=== PATIENT | female | born 1945 | race Caucasian/White ===

== ENCOUNTER → 2017-02-10 | Outpatient (CLI) | payer OTHER, BC ==
[~2017-02-10] MED LIST: ACT/35 PO; CALC500T83 PO; CHOL100010 PO; IBUP-103 PO; MAGN400T5 PO
== END | disposition home or self-care (01) ==
LOC: C.RDSM 13:48
PROVIDERS: ATTEND Orthopaedic Surgery Sports Medicine
DX: M25.561 Pain in right knee (principal)

== ENCOUNTER 2022-07-10 06:35 | Inpatient (IN) ==
--- NOTE | 2022-07-10 06:56 | Emergency Department Note ---
History of Present Illness General Chief complaint: Illness Stated complaint: Confusion, SOB, General Pain Time Seen by Provider: 07/10/22 06:54 History of Present Illness This 76-year-old female patient presents to the emergency department via EMS with her for evaluation of confusion, right sided chest discomfort, shortness of breath, back pain, weakness, and general pain. She states that she has been feeling sick at home with increasing back pain over the past 2 weeks. About 1.5 years ago she fractured her lower spine per patient. She then fell down a flight of stairs in [place], [place] about 4 months ago and fractured her right shoulder, right clavicle, and right hip along with a pelvic fracture per her . She was admitted to the hospital in [facility] and then was sent to a rehab facility. They just recently returned home to [place]. She has been diagnosed with early stages of dementia, but has not seen a local doctor since coming back to [place] because she has refused per her . Continues to complain of lower back pain and pain into her legs since that time. Has not been able to walk well since the fall and she is not able to get around a lot and her has to carry her and move her in bed. Her states that she has been almost completely immobile for the past 2 weeks. Has also had increased swelling in her bilateral legs for the past 4 weeks. She saw cardiology and per patient they did not think the leg swelling was a heart problem. Has also had redness and hardness to the right breast for an unknown amount of time per patient, but the patient's did not know about this. The patient states that she had imaging of her breast 1 year ago that did not reveal any concerning causes, but unknown if this is correct. She is on Eliquis for Afib. She has been waking up every 2 hrs needing to drink water and get andrez sukhwinder in a new position per her . The patient's is her full-time caregiver, and he does not feel like he can take care of her at home at this time. The patient's is Mohit - [phone] and would like to be contacted about all results prior to speaking with his . Home Medications Medication Instructions Recorded Confirmed Type calcium 1 tab PO DAILY 04/05/19 07/10/22 History carbonate,citrate-magnesium oxide 200 mg calcium-50 mg tablet cholecalciferol (vitamin D3) 50 2,000 units PO BID 04/05/19 07/10/22 History mcg (2,000 unit) tablet (Vitamin D3) magnesium citrate 100 mg tablet 500 mg PO DAILY 04/05/19 07/10/22 History multivitamin 1 tab PO DAILY 04/05/19 07/10/22 History polyethylene glycol 3350 17 gram 17 gm PO DAILY 04/05/19 07/10/22 History oral powder packet (Miralax) risedronate 35 mg tablet 35 mg PO WK 04/05/19 07/10/22 History vitamin B complex (B 2 tab PO DAILY 04/05/19 07/10/22 History Complex-Vitamin B12 tablet) apixaban 5 mg tablet (Eliquis) 5 mg PO BID 07/10/22 07/10/22 History sennosides 8.6 mg tablet (senna) 8.6 mg PO HS 07/10/22 07/10/22 History Allergies Allergy/AdvReac Type Severity Reaction Status Date / Time No Known Allergies Allergy Mild Verified 04/05/19 14:05 Past Med/Surg History Medical History Arthritis Diverticulitis Left humeral fracture Lumbar compression fracture L1 Osteoporosis Scoliosis Surgical History History of tonsillectomy Social History Smoking Status: Never smoker Hx Alcohol Use: No Hx Substance Use: No Preferred Language: Latvian Communication Ability: Effective Visual Impairment: Limited Hearing Ability: Use of Hearing Aid Beliefs That Will Affect Care: None marital status: Current Living Situation: Spouse current occupational status: retired Feels Safe at Home: Yes Review of Systems See HPI for pertinent positives & negatives. Physical Exam Vital Signs Vital Signs - 24 hr 07/10/22 06:42 07/10/22 06:47 07/10/22 07:13 Temperature 36.8 C Temperature Source Oral Pulse Rate 107 H 101 H Pulse Rate [Right Finger] Pulse Rhythm Regular Pulse Rhythm [Right Finger] Pulse Strength Normal Pulse Strength [Right Finger] Respiratory Rate 17 Respiratory Effort / Characteristics Non-Labored Spontaneous Respiratory Depth Normal Respiratory Pattern Regular Blood Pressure 130/78 Blood Pressure [Right Arm] Blood Pressure Mean 95 Blood Pressure Mean [Right Arm] Blood Pressure Position Sitting Blood Pressure Position [Right Arm] Pulse Oximetry 96 Oxygen Delivery Method Room Air Room Air Oxygen Flow Rate Sepsis Recent Fever Within 48 Hours No Sepsis New/Unexplained Change in Mental Status N/A Sepsis Action Taken by Nursing No Action Required 07/10/22 09:00 07/10/22 11:00 07/10/22 13:00 Temperature Temperature Source Pulse Rate Pulse Rate [Right Finger] 93 H 95 H 93 H Pulse Rhythm Pulse Rhythm [Right Finger] Regular Irregular Regular Pulse Strength Pulse Strength [Right Finger] Normal Normal Normal Respiratory Rate 18 18 18 Respiratory Effort / Characteristics Non-Labored Non-Labored Non-Labored Respiratory Depth Normal Normal Normal Respiratory Pattern Regular Regular Regular Blood Pressure Blood Pressure [Right Arm] 131/77 103/81 112/75 Blood Pressure Mean Blood Pressure Mean [Right Arm] 95 88 87 Blood Pressure Position Blood Pressure Position [Right Arm] Lying Lying Lying Pulse Oximetry 98 94 95 Oxygen Delivery Method Nasal Cannula Room Air Room Air Oxygen Flow Rate 2 Sepsis Recent Fever Within 48 Hours Sepsis New/Unexplained Change in Mental Status Sepsis Action Taken by Nursing 07/10/22 14:28 07/10/22 15:00 Temperature Temperature Source Pulse Rate 102 H Pulse Rate [Right Finger] 97 H Pulse Rhythm Pulse Rhythm [Right Finger] Pulse Strength Pulse Strength [Right Finger] Respiratory Rate 15 Respiratory Effort / Characteristics Non-Labored Spontaneous Respiratory Depth Normal Respiratory Pattern Blood Pressure Blood Pressure [Right Arm] 117/41 L Blood Pressure Mean Blood Pressure Mean [Right Arm] 66 Blood Pressure Position Blood Pressure Position [Right Arm] Pulse Oximetry 96 Oxygen Delivery Method Oxygen Flow Rate Sepsis Recent Fever Within 48 Hours Sepsis New/Unexplained Change in Mental Status Sepsis Action Taken by Nursing VITALS: Vitals are noted on the nurse's note and reviewed by myself. GENERAL: The patient is frail and chronically ill-appearing. Non toxic, no acute distress, non-diaphoretic. SKIN: Capillary refill <2 sec. EYES: PERRLA. EOMI. Conjunctivae without injection, sclerae without icterus. NOSE: Patent without discharge. MOUTH: Mucous membranes slightly dry. Uvula midline. Airway patent. NECK: Supple without nuchal rigidity. No cervical spine or paraspinal muscle tenderness. HEART: Regular rate and rhythm without murmurs gallops or rubs. LUNGS: Clear to auscultation bilaterally without wheezes, rales or rhonchi. No retractions or accessory muscle use. BREAST: The right breast is hard and indurated with erythema and abnormal appearance of the external skin. Minimally tender to palpation. No area of fluctuance noted. No discharge noted. The left breast is normal without masses, erythema, or induration. ABDOMEN: Positive bowel sounds x 4. Normal tympanic percussion. Soft, diffusely tender to palpation, without masses or organomegaly. Siddiqui sign n egative. No guarding or rebound tenderness. No focal RLQ or LLQ tenderness. MUSCULOSKELETAL: No tenderness to palpation of the thoracic spine or paraspinal muscles. The patient is tender to palpation diffusely over the lumbar spine and bilateral paraspinal muscles. The patient's bilateral lower extremities are edematous with 1+ pitting edema. No erythema, warmth, or cording noted. The patient is able to move her bilateral lower extremities slightly, but has decreased range of motion and decreased strength bilaterally. Peripheral pulses 2+. NEURO: Patient was alert and oriented to person and place, but not to time. She is sometimes able to answer questions, but then other times seems confused. Normal sensation to the bilateral upper and lower extremities. Course Administered Medications Discontinued Medications Fentanyl Citrate (Fentanyl Citrate Pf 100 Mcg/2 Ml Vial) 50 mcg IV NOW STA Stop: 07/10/22 08:07 Last Admin: 07/10/22 08:14 Dose: 50 mcg Documented By: JV Sodium Chloride (Nss) 500 mls @ 999 mls/hr IV .Q31M STA Stop: 07/10/22 07:43 Last Infusion: 07/10/22 09:06 Dose: 0 mls/hr Documented By: Admin: 07/10/22 08:15 Dose: 999 mls/hr Documented By: JV Cefepime HCl (Maxipime) 2,000 mg in 20 mls @ 5 mls/min IV NOW STA; Protocol Stop: 07/10/22 10:55 Last Admin: 07/10/22 11:37 Dose: 5 mls/min Documented By: JV Ioversol (Optiray 350 100ml) 94 ml IV ONCE ONE Stop: 07/10/22 10:01 Last Admin: 07/10/22 10:00 Dose: 94 ml Documented By: ZAID Ondansetron HCl (Ondansetron Inj 2 Mg/Ml 2 Ml Vial) 4 mg IV NOW STA Stop: 07/10/22 08:07 Last Admin: 07/10/22 08:14 Dose: 4 mg Documented By: JV Medical Decision Making Differential Diagnosis Differential diagnosis includes dementia, acute intracranial hemorrhage, infection, sepsis, breast cancer, breast mass, breast infection/abscess, malignancy, metastases, pneumonia, PE, IL, CHF, DVT, aortic dissection, diverticulitis, abdominal abscess, hepatitis, cholecystitis, cholelithiasis, UTI, pyelonephritis, constipation, bowel obstruction, COVID, RSV, influenza, fracture, subluxation, epidural abscess, cauda equina syndrome, or others. Laboratory Data Attestation: I reviewed the patient's lab results. 07/10/22 08:09 07/10/22 08:09 Lab Results 07/10/22 07/10/22 07/10/22 Range/Units 08:09 08:09 08:09 WBC 8.34 (4.8-10.8) K/ul RBC 4.51 (4.20-5.40) M/uL Hgb 13.3 (12.0-16.0) g/dl Hct 38.0 (37.0-47.0) % MCV 84.3 (80.0-100.0) fL MCH 29.5 (25.0-34.0) pg MCHC 35.0 (32.0-36.0) g/dL RDW Std Deviation 45.3 (36.4-46.3) fL RDW Coeff of Talha 14.8 H (11.5-14.5) % Plt Count 386 (130-400) K/uL MPV 10.3 (9.4-12.4) fL Immature Gran % (Auto) 0.2 % Neut % (Auto) 82.9 % Lymph % (Auto) 7.7 % Weakley % (Auto) 9.1 % Eos % (Auto) 0.0 % Baso % (Auto) 0.1 % Neut # (Auto) 6.91 H (1.40-6.50) K/uL Lymph # (Auto) 0.64 L (1.2-3.4) K/uL Weakley # (Auto) 0.76 H (0.11-0.59) K/uL Eos # (Auto) 0.00 (0-0.50) K/uL Baso # (Auto) 0.01 (0-0.2) K/uL Immature Gran # (Auto) 0.02 (0.01-0.20) K/uL PT 11.3 (9.0-12.0) Seconds INR 1.0 (0.9-1.1) APTT 25.9 (21.0-31.0) Seconds PTT Ratio 0.9 Sodium 124 L (136-145) mmol/L Potassium 4.8 (3.5-5.1) mmol/L Chloride 95 L (98-107) mmol/L Carbon Dioxide 19 L (21-32) mmol/L Anion Gap 10 (3-11) BUN 42 H (6-23) mg/dl Creatinine 1.19 (0.6-1.2) mg/dl Est Cr Clr Drug Dosing 32.8 ml/min Est GFR ( Amer) 52.1 ml/min Est GFR (Non-Af Amer) 44.9 ml/min BUN/Creatinine Ratio 35.3 H (10-20) Glucose 114 H (70-99(Fasting)) mg/dl Lactate (0.4-2.0) mmol/L Calcium 9.3 (8.6-10.3) mg/dl Magnesium 2.3 (1.7-2.4) mg/dl Total Bilirubin 1.0 (0.2-1.0) mg/dl AST 14 (13-39) U/L ALT 11 (7-52) U/L Alkaline Phosphatase 57 (34-104) U/L Troponin I High Sens 13.6 (0-14) pg/ml B-Natriuretic Peptide (0-100) pg/ml Total Protein 5.4 L (6.0-8.3) gm/dl Albumin 3.0 L (3.4-5.0) gm/dl Globulin 2.4 L (2.5-4.0) gm/dl Albumin/Globulin Ratio 1.3 (0.9-2) Lipase < 3 L (11-82) U/L TSH (0.300-4.500) uIu/ml Urine Color Urine Appearance (Clear) Urine pH (4.5-7.5) Ur Specific [place] (1.000-1.030) Urine Protein (Negative) Urine Glucose (UA) (Negative) Urine Ketones (Negative) Urine Blood (Negative) Urine Nitrite (Negative) Urine Bilirubin (Negative) Urine Urobilinogen (Negative) Ur Leukocyte Esterase (Negative) Urine WBC (Auto) (0-5) /hpf Urine RBC (Auto) (0-4) /hpf U Hyaline Cast (Auto) (0-5) /lpf U Epithel Cells (Auto) (0-5) /lpf Urine Bacteria (Auto) (Negative) SARS-CoV-2 (PCR) (Negative) Influenza Type A (PCR) (Neg) Influenza Type B (PCR) (Neg) RSV (RT-PCR) (Neg) 07/10/22 07/10/22 07/10/22 Range/Units 08:09 08:09 08:17 WBC (4.8-10.8) K/ul RBC (4.20-5.40) M/uL Hgb (12.0-16.0) g/dl Hct (37.0-47.0) % MCV (80.0-100.0) fL MCH (25.0-34.0) pg MCHC (32.0-36.0) g/dL RDW Std Deviation (36.4-46.3) fL RDW Coeff of Talha (11.5-14.5) % Plt Count (130-400) K/uL MPV (9.4-12.4) fL Immature Gran % (Auto) % Neut % (Auto) % Lymph % (Auto) % Weakley % (Auto) % Eos % (Auto) % Baso % (Auto) % Neut # (Auto) (1.40-6.50) K/uL Lymph # (Auto) (1.2-3.4) K/uL Weakley # (Auto) (0.11-0.59) K/uL Eos # (Auto) (0-0.50) K/uL Baso # (Auto) (0-0.2) K/uL Immature Gran # (Auto) (0.01-0.20) K/uL PT (9.0-12.0) Seconds INR (0.9-1.1) APTT (21.0-31.0) Seconds PTT Ratio Sodium (136-145) mmol/L Potassium (3.5-5.1) mmol/L Chloride (98-107) mmol/L Carbon Dioxide (21-32) mmol/L Anion Gap (3-11) BUN (6-23) mg/dl Creatinine (0.6-1.2) mg/dl Est Cr Clr Drug Dosing ml/min Est GFR ( Amer) ml/min Est GFR (Non-Af Amer) ml/min BUN/Creatinine Ratio (10-20) Glucose (70-99(Fasting)) mg/dl Lactate 1.0 (0.4-2.0) mmol/L Calcium (8.6-10.3) mg/dl Magnesium (1.7-2.4) mg/dl Total Bilirubin (0.2-1.0) mg/dl AST (13-39) U/L ALT (7-52) U/L Alkaline Phosphatase (34-104) U/L Troponin I High Sens (0-14) pg/ml B-Natriuretic Peptide 70 (0-100) pg/ml Total Protein (6.0-8.3) gm/dl Albumin (3.4-5.0) gm/dl Globulin (2.5-4.0) gm/dl Albumin/Globulin Ratio (0.9-2) Lipase (11-82) U/L TSH 1.586 (0.300-4.500) uIu/ml Urine Color Urine Appearance (Clear) Urine pH (4.5-7.5) Ur Specific [place] (1.000-1.030) Urine Protein (Negative) Urine Glucose (UA) (Negative) Urine Ketones (Negative) Urine Blood (Negative) Urine Nitrite (Negative) Urine Bilirubin (Negative) Urine Urobilinogen (Negative) Ur Leukocyte Esterase (Negative) Urine WBC (Auto) (0-5) /hpf Urine RBC (Auto) (0-4) /hpf U Hyaline Cast (Auto) (0-5) /lpf U Epithel Cells (Auto) (0-5) /lpf Urine Bacteria (Auto) (Negative) SARS-CoV-2 (PCR) (Negative) Influenza Type A (PCR) (Neg) Influenza Type B (PCR) (Neg) RSV (RT-PCR) (Neg) 07/10/22 07/10/22 Range/Units 09:02 Unknown WBC (4.8-10.8) K/ul RBC (4.20-5.40) M/uL Hgb (12.0-16.0) g/dl Hct (37.0-47.0) % MCV (80.0-100.0) fL MCH (25.0-34.0) pg MCHC (32.0-36.0) g/dL RDW Std Deviation (36.4-46.3) fL RDW Coeff of Talha (11.5-14.5) % Plt Count (130-400) K/uL MPV (9.4-12.4) fL Immature Gran % (Auto) % Neut % (Auto) % Lymph % (Auto) % Weakley % (Auto) % Eos % (Auto) % Baso % (Auto) % Neut # (Auto) (1.40-6.50) K/uL Lymph # (Auto) (1.2-3.4) K/uL Weakley # (Auto) (0.11-0.59) K/uL Eos # (Auto) (0-0.50) K/uL Baso # (Auto) (0-0.2) K/uL Immature Gran # (Auto) (0.01-0.20) K/uL PT (9.0-12.0) Seconds INR (0.9-1.1) APTT (21.0-31.0) Seconds PTT Ratio Sodium (136-145) mmol/L Potassium (3.5-5.1) mmol/L Chloride (98-107) mmol/L Carbon Dioxide (21-32) mmol/L Anion Gap (3-11) BUN (6-23) mg/dl Creatinine (0.6-1.2) mg/dl Est Cr Clr Drug Dosing ml/min Est GFR ( Amer) ml/min Est GFR (Non-Af Amer) ml/min BUN/Creatinine Ratio (10-20) Glucose (70-99(Fasting)) mg/dl Lactate (0.4-2.0) mmol/L Calcium (8.6-10.3) mg/dl Magnesium (1.7-2.4) mg/dl Total Bilirubin (0.2-1.0) mg/dl AST (13-39) U/L ALT (7-52) U/L Alkaline Phosphatase (34-104) U/L Troponin I High Sens (0-14) pg/ml B-Natriuretic Peptide (0-100) pg/ml Total Protein (6.0-8.3) gm/dl Albumin (3.4-5.0) gm/dl Globulin (2.5-4.0) gm/dl Albumin/Globulin Ratio (0.9-2) Lipase (11-82) U/L TSH (0.300-4.500) uIu/ml Urine Color Dark Yellow Urine Appearance Clear (Clear) Urine pH 5.0 (4.5-7.5) Ur Specific [place] 1.028 (1.000-1.030) Urine Protein 1+ H (Negative) Urine Glucose (UA) Negative (Negative) Urine Ketones Negative (Negative) Urine Blood 1+ H (Negative) Urine Nitrite Positive A (Negative) Urine Bilirubin 2+ H (Negative) Urine Urobilinogen Negative (Negative) Ur Leukocyte Esterase 1+ H (Negative) Urine WBC (Auto) 1-5 (0-5) /hpf Urine RBC (Auto) 0-4 (0-4) /hpf U Hyaline Cast (Auto) 1-5 (0-5) /lpf U Epithel Cells (Auto) 5-10 H (0-5) /lpf Urine Bacteria (Auto) Negative (Negative) SARS-CoV-2 (PCR) POSITIVE A* (Negative) Influenza Type A (PCR) Negative (Neg) Influenza Type B (PCR) Negative (Neg) RSV (RT-PCR) Negative (Neg) Imaging Data Radiologist's Impression: Abdomen/Pelvis CT 07/10/22 07:[address] WITH IV CONTRAST HISTORY: Acute chest and abdominal pain abdominal pain TECHNIQUE: Multiaxial CT images of the abdomen and pelvis were performed following the IV administration of 94 cc of Optiray, A dose lowering technique was utilized adhering to the principles of ALARA. COMPARISON STUDY: Chest CT and CT lumbar spine studies of same day, lumbar spine CT 03/06/2019 FINDINGS: Partially imaged heterogeneous enhancement throughout the majority of the right breast measures up to 8.2 x 3.0 cm with associated skin thickening and enhancement. Additional enhancement adjacent right chest wall. Anasarca. Moderate left and large right pleural effusions. Right basilar consolidation/volume loss. Additional nodular thickening of the pericardium and right hemidiaphragmatic pleural reflections. Unremarkable spleen. Moderately atrophic pancreas. Distended gallbladder. Unremarkable liver. There is narrowing of the portal splenic confluence. Masslike thickening of the adrenal glands measure up to 1.6 cm on the right. Nodular thickening within the right greater left perirenal spaces. 1.2 cm cyst of the superior pole right kidney. Decompressed urinary bladder with mild wall thickening. Aorta and IVC are unremarkable. With moderate wall thickening of the distal stomach. There are several fluid- filled borderline dilated loops of small bowel measuring up to approximately 2.8 cm. Moderate fecal retention of the rectum with circumferential rectal wall thickening on image 254. Heterogeneous enhancing 3.5 x 3.5 cm uterine mass adjacent 7 mm nodule on image 255. Masslike thickening of the cecum/ileocecal valve with increased enhancement adjacent meniscal lymph nodes measuring up to 1.3 x 0.8 cm. Additional wall thickening is noted within portions transverse and ascending colon. Demineralized appearance of the bones. Severe superior endplate compression deformity at L1 has progressively worsened from the 2019 comparison. Bilateral sacral insufficiency fractures. Healing subacute appearing nondisplaced anterolateral rib fractures. Healing subacute mildly displaced frac tures of the right superior and inferior pubic rami. Subacute nondisplaced intertrochanteric fracture of the right femur with heterogeneous sclerosis. IMPRESSION: 1. Large malignant right breast mass with chest wall and cutaneous extension. 2. Moderate left with large right pleural effusions. 3. Pleural, pericardial, peritoneal/omental and adrenal metastasis. 4. Heterogeneously enhancing 3.5 cm uterine mass. 5. Irregular wall thickening within the cecum, ascending, transverse colon and rectum may be secondary to serosal implants however should be correlated with colonoscopy to exclude colonic neoplasm. 6. Borderline dilation involving several loops of small bowel may represent partial obstruction. 7. Healing subacute nondisplaced intertrochanteric fracture of the right femur. Associated sclerosis may be secondary to bony healing however an underlying lesion with pathologic fracture could appear similarly. 8. Healing subacute right pelvic ring fractures with mild displacement. 9. Marked narrowing of the portal splenic confluence. 10. Additional findings as above. ACT 112: Negative or not required by law. The above report was generated using voice recognition software. It may contain grammatical, syntax or spelling errors. Electronically signed by: Isidro Osborne M.D. 07/10/2022 11:[address] 07/10/22 07:13 CT head/brain wo con CLINICAL HISTORY: 76 years-old Female with change in mental status. Acutely altered mental status TECHNIQUE: Multiple axial CT images of the head were obtained without contrast. A dose lowering technique was utilized adhering to the principles of ALARA. COMPARISON: Brain MRI 10/10/2014. FINDINGS: No acute intracranial hemorrhage, midline shift, intracranial mass, hydrocephalus, territorial ischemia or abnormal extra-axial collection. Involutional changes with chronic microvascular ischemic disease. The calvarium is intact. Calcification noted within the left posterior fossa on image 9 series 2. The paranasal sinuses, mastoid air cells, and middle ear cavities are clear. Cardiomegaly. Right pleural effusion noted on the oral pathologist localizer images. IMPRESSION: No acute intracranial abnormality identified. ACT 112: Negative or not required by law. The above report was generated using voice recognition software. It may contain grammatical, syntax or spelling errors. Electronically signed by: Isidro Osborne M.D. 07/10/2022 10:[address] 07/10/22 07:[address] DOSE: 1065.30 mGy.cm HISTORY: low back pain TECHNIQUE: Multiaxial CT images of the lumbar spine were performed and reformatted in the sagittal and coronal plane following the use of intravenous contrast. A dose lowering technique was utilized adhering to the principles of ALARA. COMPARISON: Lumbar spine CT 03/06/2019. FINDINGS: There is a moderate to severe compression deformity at L1 which has progressed in the interval. This demonstrates up to 75% loss of height anteriorly. There is 3 mm of retropulsion of the posterior superior corner resulting in mild central canal narrowing at this level. This favors a chronic fracture. No significant paravertebral edema. No additional fractures within the lumbar spine. Moderate facet degenerative changes throughout the lumbar spine. There is a fracture involving the right sacral wing which also appears subacute. This may represent an insufficiency fracture. This likely involves the S3 vertebral body. Subtle sclerosis within the left sacral wing may represent an additional insufficiency fracture. Bilateral pleural effusions are better appreciated on the same day chest CT. Presacral edema and body wall edema is also noted. IMPRESSION: 1. A moderate to severe superior endplate compression fracture at L1 which is likely chronic. 2. No definite acute fractures within the lumbar spine. 3. Sacral fractures as described above which favor insufficiency fractures. 4. Bilateral pleural effusions. ACT 112: Negative or not required by law. Electronically signed by: Sony Hunter M.D. 07/10/2022 10:[address] 07/10/22 07:[address] CONTRAST CT DOSE: HISTORY: Atypical chest pain TECHNIQUE: Multiaxial CT images of the chest were performed following the intravenous administration of contrast. A dose lowering technique was utilized adhering to the principles of ALARA. COMPARISON: None. FINDINGS: Thoracic spine levoscoliosis. A moderate to severe chronic compression deformities again noted at L1. Old, healed right anterior rib fractures. Old, healed right clavicle and bilateral humeral neck fractures. No acute fractures identified within the chest. No suspicious lytic or blastic osseous lesions. There is diffuse body wall edema. The thyroid gland enhances normally. Abnormal skin thickening and enhancement within the right breast. There is also near diffuse masslike enhancement within the right breast which appears to involve the right pectoralis muscles. Therefore, this is highly suspicious for a breast malignancy. There is also ill-defined enhancing soft tissue surrounding the right axillary vessels which may represent metastatic disease. Limited views of the upper abdomen demonstrate a normal liver and spleen. Nodular thickening within the bilateral adrenal glands is noted. There is a small amount of ascites. The gallbladder is distended. Normal caliber esophagus. The heart is mildly enlarged. There is a large right and moderate left pleural effusion. There is complete atelectasis of the right middle and lower lobes as well as partial atelectasis of the right upper lobe posteriorly. This is likely due to compression from the large right pleural effusion. Subtle ill-defined soft tissue surrounding the main portal vein which is moderately narrowed. This is best seen on image 247. No definite hilar lymphadenopathy. A prominent ill- defined upper right paratracheal lymph node on image 77 which measures 1.5 cm. No evidence for an aortic dissection. The main pulmonary arteries are patent. No pneumothorax. The central airways are patent. Patchy densities within the left lower lobe favor atelectasis. There are also patchy airspace opacities within the right upper lobe. These are nonspecific could be due to atelectasis or a developing pneumonia. Irregular soft tissue enhancement within the anterior diaphragmatic space and along the base of the right pleura suggesting metastatic disease. There is also abnormal thickening on the right diaphragmatic savanah. Mild anterior pleural thickening and enhancement which is also concerning for metastatic disease. Mild soft tissue enhancement within the retrosternal space concerning for metastatic disease. IMPRESSION: 1. Abnormal skin thickening and enhancement within the right breast. There is also near diffuse masslike enhancement within the right breast which appears to involve the right pectoralis muscles. Therefore, this is highly suspicious for a breast malignancy. 2. Ill-defined enhancing soft tissue surrounding the right axillary vessels and within the upper right paratracheal location concerning for metastatic disease. 3. Large right and moderate left pleural effusions, likely malignant. 4. Patchy airspace opacities within the right upper lobe which could represent atelectasis or a developing pneumonia. 5. Nodular thickening of the bilateral adrenal glands. 6. Subtle ill-defined soft tissue surrounding the main portal vein which is moderately narrowed. This is nonspecific but could represent metastatic disease. 7. Small amount of ascites. 8. Additional sites of metastatic disease as described above. ACT 112: Negative or not required by law. Electronically signed by: Sony Hunter M.D. 07/10/2022 10:51 AM Venous Doppler Study 07/10/22 07:16 BILATERAL LOWER EXTREMITY VENOUS DOPPLER HISTORY: leg pain/edema COMPARISON STUDY: None. FINDINGS: There is normal compressibility, flow, and augmentation within the bilateral lower extremity deep venous systems. A 37 x 19 x 11 mm left popliteal cyst. IMPRESSION: No DVT within the right or left lower extremity. ACT 112: Negative or not required by law. Electronically signed by: Sony Hunter M.D. 07/10/2022 10:10 AM [facility] Narrative I examined the patient. Additional history was obtained from the patient's and EMS due to the patient's change in mental status. The patient presents complaining of change in her mental status/confusion, right breast abnormality, shortness of breath, chest discomfort, abdominal pain, swelling in her bilateral lower extremities, and decreased mobility. Symptoms have been getting progressively worse since she was diagnosed with multiple fractures 4 months ago in [facility] as above. The patient's did not know about the breast lesion. The patient's no longer feels like he can care for her at home. The patient has not been seen locally yet for the symptoms. An IV lock was placed and labs were drawn. She was given 500 mL normal saline solution bolus. She was given fentanyl 50 mcg IV and Zofran 4 mg IV for pain. Continuous food quality technician: Order was placed for continuous food quality technician. Patient was placed on the food quality technician and continuous pulse ox. Patient was noted to be in atrial fibrillation at an initial rate of 104 bpm per my interpretation. EKG was interpreted by myself and Dr. Sanz and shows atrial fibrillation with rapid ventricular response at 112 bpm. The quality of the EKG is poor, but there is possible T wave abnormalities. No acute ST or T wave changes. CBC without anemia or leukocytosis and platelets were normal. Coags are normal. Sodium low at 124, chloride 95, carbon dioxide 19, total protein 5.4, albumin 3, globulin 2.4. BUN elevated 42, but creatinine normal at 1.19. Glucose 114. LFTs were normal. Lipase was normal. TSH was normal. Magnesium normal. BNP normal. Troponin was normal. Urinalysis with possible UTI with culture pending. RSV and influenza were negative. COVID was positive. Blood cultures are pending. Venous ultrasound of the bilateral lower extremities were negative for DVT. CT scans were reviewed by myself and read by radiology as above. CT scan of the head without acute intracranial abnormality. CT scan of the lumbar spine shows a moderate to severe superior endplate compression fracture at L1 which is likely chronic. No definite acute fractures within the lumbar spine. Sacral fractures which favor insufficiency fractures. Bilateral pleural effusions. CT scan of the chest shows abnormal skin thickening and enhancement within the right breast as well as a near diffuse masslike enhancement within the right breast which appears to involve the right pectoralis muscles. Therefore, this is highly suspicious for breast malignancy. There is ill-defined enhancing soft tissue surrounding the right axillary vessels and within the upper right paratracheal location concerning for metastatic disease. Large right and moderate left pleural effusions which are likely malignant. Patchy airspace opacities within the right upper lobe which could represent atelectasis or developing pneumonia. Nodular thickening of the bilateral adrenal glands. Subtle ill-defined soft tissue surrounding the main portal vein which is moderately narrowed. This is nonspecific, but could represent metastatic disease. Small amount of ascites. Additional sites of metastatic disease as above. CT scan of the abdomen and pelvis shows the large malignant right breast mass with chest wall and cutaneous extension. Moderate left with large right pleural effusions. Pleural, pericardial, peritoneal, omental, and adrenal metastases. Heterogeneously enhancing 3.5 cm uterine mass. Irregular wall thickening within the cecum, ascending, transverse colon, and rectum which may be secondary to serosal implants, however, may include colonic neoplasm. Borderline dilation involving several loops of the small bowel which may represent partial obstruction. Healing subacute nondisplaced intertrochanteric fracture of the right femur. Associated sclerosis may be secondary to bony healing, but no underlying lesion with pathologic fracture could appear similarly. Healing subacute right pelvic ring fractures with mild displacement. Marked narrowing of the portal splenic confluence. The patient has multiple abnormalities on her work-up including positive COVID, UTI, pleural effusion, right breast mass that is likely malignant with multiple metastases, hyponatremia, multiple healing fractures, change in mental status, and generalized weakness. The patient was given cefepime and IV in the emergency department. Will await results of the blood and urine cultures. I had a meaningful discussion about this patient with Dr. Sanz who agrees with my assessment and the treatment plan. I spoke with the patient's multiple different times during the emergency department stay regarding the f indings of the imaging along with blood work. I did contact pastoral services who presented to speak with the patient as well given the new diagnosis of likely breast cancer cancer with metastases. I then also spoke with the patient's again with pastoral services present. I spoke with the on-call hospitalist who agreed to admit the patient for further evaluation and treatment. Please refer to their dictation for further details. The patient's did discuss with me in a sub-waiting room along with pastoral staff that he did not want the to know about the cancer related f indings and that no information should be given to the patient regarding these findings prior to speaking with him first. As we were returning to the room after our discussion, it was noted that the hospitalist was in the room examining the patient and the patient's discussed these requests with the hospitalist. The patient's , Mohit, can be reached at [phone]. The patient's care was transferred in stable condition. Impression & Plan Breast mass, right, Lumbar compression fracture, Hyponatremia, Pleural eff usion, Generalized weakness, COVID-19, UTI (urinary tract infection), Osteoporosis Discharge Plan Visit Data Chief Complaint: Illness Stated Complaint: Confusion, SOB, General Pain ED Provider: Mac Sanz ED Midlevel Provider: Tali Lora Discharge Problem: Breast mass, right, Lumbar compression fracture, Hyponatremia, Pleural effusion, Generalized weakness, COVID-19, UTI (urinary tract infection), Osteoporosis Patient Disposition: Admitted As Inpatient Condition: Good Forms Stand Alone Forms: My [facility] Prescriptions Prescriptions: No Action calcium carb and citrat-mag ox 200 mg calcium- 50 mg tablet 1 tab PO DAILY multivitamin Tablet 1 tab PO DAILY vitamin B complex [B Complex-Vitamin B12] Tablet 2 tab PO DAILY polyethylene glycol 3350 [Miralax] 17 gram powder in packet 17 gm PO DAILY magnesium citrate 100 mg tablet 500 mg PO DAILY cholecalciferol (vitamin D3) [Vitamin D3] 2,000 unit tablet 2,000 units PO BID risedronate 35 mg tablet 35 mg PO WK sennosides [senna] 8.6 mg tablet 8.6 mg PO HS Eliquis 5 mg tablet 5 mg PO BID Referrals Referrals: Alejandra Venegas MD [Primary Care Provider] -
[2022-07-10] MEDS ORDERED: SODIUM CHLORIDE 0.9% 500 ML IV STA (07:13)
[2022-07-10] MEDS ORDERED: fentaNYL citrate PF 100 MCG/2 ML VIAL IV STA (08:06)
[2022-07-10] MEDS ORDERED: ONDANSETRON INJ 2 MG/ML 2 ML VIAL IV STA (08:06)
[2022-07-10 08:17] LABS: Influenza A virus by PCR Negative (Neg); Influenza B virus by PCR Negative (Neg); RSV by PCR Negative (Neg)
[2022-07-10 08:24] LABS: SARS CoV2 RNA(COVID-19) Ceph POSITIVE (Negative)
[2022-07-10 08:49] LABS: Basophils # (auto) 0.01 K/uL (0-0.2); Basophils % (auto) 0.1 %; Hemoglobin 13.3 g/dl (12.0-16.0); Immature Granulocytes # (auto) 0.02 K/uL (0.01-0.20); Immature Granulocytes % (auto) 0.2 %; Lymphocytes # (auto) 0.64 K/uL (1.2-3.4); Lymphocytes % (auto) 7.7 %; Mean Corpuscular Hemoglobin 29.5 pg (25.0-34.0); Mean Corpuscular Volume 84.3 fL (80.0-100.0); Mean Platelet Volume 10.3 fL (9.4-12.4); Monocytes # (auto) 0.76 K/uL (0.11-0.59); Monocytes % (auto) 9.1 %; Neutrophils # (auto) 6.91 K/uL (1.40-6.50); Neutrophils % (auto) 82.9 %; Platelet Count 386 K/uL (130-400); RDW Coefficient of Variation 14.8 % (11.5-14.5); RDW Standard Deviation 45.3 fL (36.4-46.3); Red Blood Count 4.51 M/uL (4.20-5.40); White Blood Count 8.34 K/ul (4.8-10.8)
[2022-07-10 09:05] LABS: Anion Gap 10 (3-11); BUN Creatinine Ratio 35.3 (10-20); Blood Urea Nitrogen 42 mg/dl (6-23); Calcium 9.3 mg/dl (8.6-10.3); Carbon Dioxide 19 mmol/L (21-32); Chloride 95 mmol/L (98-107); Creatinine Clr Calc Pharmacy 32.8 ml/min; Est GFR (African American) 52.1 ml/min; Est GFR (Non-African American) 44.9 ml/min; Glucose 114 mg/dl (70-99(Fasting)); Potassium 4.8 mmol/L (3.5-5.1); Sodium 124 mmol/L (136-145)
[2022-07-10 09:11] LABS: Troponin I High Sensitivity 13.6 pg/ml (0-14)
[2022-07-10 09:12] LABS: Alanine Aminotransferase 11 U/L (7-52); Albumin Globulin Ratio 1.3 (0.9-2); Alkaline Phosphatase 57 U/L (34-104); Aspartate Aminotransferase 14 U/L (13-39); Globulin 2.4 gm/dl (2.5-4.0); Lipase < 3 U/L (11-82); Magnesium 2.3 mg/dl (1.7-2.4); Total Protein 5.4 gm/dl (6.0-8.3)
[2022-07-10 09:15] LABS: Partial Thromboplastin Ratio 0.9; Partial Thromboplastin Time 25.9 Seconds (21.0-31.0); Prothrombin Time 11.3 Seconds (9.0-12.0)
[2022-07-10 09:29] LABS: Appearance Urine Clear (Clear); Bacteria Urine Automated Negative (Negative); Blood Urine 1+ (Negative); Color Urine Dark Yellow; Glucose Urine UA Negative (Negative); Ketones Urine Negative (Negative); Leukocyte Esterase Urine 1+ (Negative); Nitrite Urine Positive (Negative); Protein Urine 1+ (Negative); RBC Urine Automated 0-4 /hpf (0-4); Specific Gravity Urine 1.028 (1.000-1.030); Urobilinogen Urine Negative (Negative)
[2022-07-10 09:31] LABS: Bilirubin Urine 2+ (Negative)
[2022-07-10] MEDS ORDERED: OPTIRAY 350 100ml IV ONE (10:00)
--- NOTE | 2022-07-10 10:12 | Ultrasound Report ---
BILATERAL LOWER EXTREMITY VENOUS DOPPLER HISTORY: leg pain/edema COMPARISON STUDY: None. FINDINGS: There is normal compressibility, flow, and augmentation within the bilateral lower extremit y deep venous systems. A 37 x 19 x 11 mm left popliteal cyst. IMPRESSION: No DVT within the right or left lower extremity. ACT 112: Negative or not required by law. Electronically signed by: Sony Hunter M.D. 07/10/2022 10:10 AM
--- NOTE | 2022-07-10 10:17 | CT Scan Report ---
CT head/brain wo con CLINICAL HISTORY: 76 years-old Female with change in mental status. Acutely altered mental status TECHNIQUE: Multiple axial CT images of the head were obtained without contrast. A dose lowering tech nique was utilized adhering to the principles of ALARA. COMPARISON: Brain MRI 10/10/2014. FINDINGS: No acute intracranial hemorrhage, midline shift, intracranial mass, hydrocephalus, territorial ischem ia or abnormal extra-axial collection. Involutional changes with chronic microvascular ischemic disea se. The calvarium is intact. Calcification noted within the left posterior fossa on image 9 series 2. The paranasal sinuses, mastoid air cells, and middle ear cavities are clear. Cardiomegaly. Right pleural effusion noted on the cripple chaser localizer images. IMPRESSION: No acute intracranial abnormality identified. ACT 112: Negative or not required by law. The above report was generated using voice recognition software. It may contain grammatical, syntax o r spelling errors. Electronically signed by: Isidro Osborne M.D. 07/10/2022 10:16 AM
--- NOTE | 2022-07-10 10:35 | CT Scan Report ---
LUMBAR SPINE CT CT DOSE: 1065.30 mGy.cm HISTORY: low back pain TECHNIQUE: Multiaxial CT images of the lumbar spine were performed and reformatted in the sagittal an d coronal plane following the use of intravenous contrast. A dose lowering technique was utilized ad ambar to the principles of ALARA. COMPARISON: Lumbar spine CT 03/06/2019. FINDINGS: There is a moderate to severe compression deformity at L1 which has progressed in the inter faustino. This demonstrates up to 75% loss of height anteriorly. There is 3 mm of retropulsion of the post erior superior corner resulting in mild central canal narrowing at this level. This favors a chronic fracture. No significant paravertebral edema. No additional fractures within the lumbar spine. Modera te facet degenerative changes throughout the lumbar spine. There is a fracture involving the right sa cral wing which also appears subacute. This may represent an insufficiency fracture. This likely invo lves the S3 vertebral body. Subtle sclerosis within the left sacral wing may represent an additional insufficiency fracture. Bilateral pleural effusions are better appreciated on the same day chest CT. Presacral edema and body wall edema is also noted. IMPRESSION: 1. A moderate to severe superior endplate compression fracture at L1 which is likely chronic. 2. No definite acute fractures within the lumbar spine. 3. Sacral fractures as described above which favor insufficiency fractures. 4. Bilateral pleural effusions. ACT 112: Negative or not required by law. Electronically signed by: Sony Hunter M.D. 07/10/2022 10:33 AM
--- NOTE | 2022-07-10 10:48 | CT Scan Report ---
CHEST CT WITH CONTRAST CT DOSE: HISTORY: Atypical chest pain TECHNIQUE: Multiaxial CT images of the chest were performed following the intravenous administration of contrast. A dose lowering technique was utilized adhering to the principles of ALARA. COMPARISON: None. FINDINGS: Thoracic spine levoscoliosis. A moderate to severe chronic compression deformities again no diamante at L1. Old, healed right anterior rib fractures. Old, healed right clavicle and bilateral humeral neck fractures. No acute fractures identified within the chest. No suspicious lytic or blastic osseo us lesions. There is diffuse body wall edema. The thyroid gland enhances normally. Abnormal skin thic kening and enhancement within the right breast. There is also near diffuse masslike enhancement withi n the right breast which appears to involve the right pectoralis muscles. Therefore, this is highly s uspicious for a breast malignancy. There is also ill-defined enhancing soft tissue surrounding the ri ght axillary vessels which may represent metastatic disease. Limited views of the upper abdomen demon strate a normal liver and spleen. Nodular thickening within the bilateral adrenal glands is noted. Th ere is a small amount of ascites. The gallbladder is distended. Normal caliber esophagus. The heart i s mildly enlarged. There is a large right and moderate left pleural effusion. There is complete atele ctasis of the right middle and lower lobes as well as partial atelectasis of the right upper lobe pos teriorly. This is likely due to compression from the large right pleural effusion. Subtle ill-defined soft tissue surrounding the main portal vein which is moderately narrowed. This is best seen on imag e 247. No definite hilar lymphadenopathy. A prominent ill-defined upper right paratracheal lymph node on image 77 which measures 1.5 cm. No evidence for an aortic dissection. The main pulmonary arteries are patent. No pneumothorax. The central airways are patent. Patchy densities within the left lower lobe favor atelectasis. There are also patchy airspace opacities within the right upper lobe. These a re nonspecific could be due to atelectasis or a developing pneumonia. Irregular soft tissue enhanceme nt within the anterior diaphragmatic space and along the base of the right pleura suggesting metastat ic disease. There is also abnormal thickening on the right diaphragmatic savanah. Mild anterior pleural thickening and enhancement which is also concerning for metastatic disease. Mild soft tissue enhancem ent within the retrosternal space concerning for metastatic disease. IMPRESSION: 1. Abnormal skin thickening and enhancement within the right breast. There is also near diffuse massl mauricio enhancement within the right breast which appears to involve the right pectoralis muscles. Theref ore, this is highly suspicious for a breast malignancy. 2. Ill-defined enhancing soft tissue surrounding the right axillary vessels and within the upper righ t paratracheal location concerning for metastatic disease. 3. Large right and moderate left pleural effusions, likely malignant. 4. Patchy airspace opacities within the right upper lobe which could represent atelectasis or a devel oping pneumonia. 5. Nodular thickening of the bilateral adrenal glands. 6. Subtle ill-defined soft tissue surrounding the main portal vein which is moderately narrowed. This is nonspecific but could represent metastatic disease. 7. Small amount of ascites. 8. Additional sites of metastatic disease as described above. ACT 112: Negative or not required by law. Electronically signed by: oSny Hunter M.D. 07/10/2022 10:51 AM
[2022-07-10] MEDS ORDERED: CEFEPIME 2,000 MG/20 ML VIAL IV STA (10:52)
--- NOTE | 2022-07-10 11:05 | CT Scan Report ---
ABDOMEN AND PELVIS CT WITH IV CONTRAST HISTORY: Acute chest and abdominal pain abdominal pain TECHNIQUE: Multiaxial CT images of the abdomen and pelvis were performed following the IV administrat ion of 94 cc of Optiray, A dose lowering technique was utilized adhering to the principles of ALARA. COMPARISON STUDY: Chest CT and CT lumbar spine studies of same day, lumbar spine CT 03/06/2019 FINDINGS: Partially imaged heterogeneous enhancement throughout the majority of the right breast frandy ures up to 8.2 x 3.0 cm with associated skin thickening and enhancement. Additional enhancement adjac ent right chest wall. Anasarca. Moderate left and large right pleural effusions. Right basilar consol idation/volume loss. Additional nodular thickening of the pericardium and right hemidiaphragmatic ple ural reflections. Unremarkable spleen. Moderately atrophic pancreas. Distended gallbladder. Unremarkable liver. There i s narrowing of the portal splenic confluence. Masslike thickening of the adrenal glands measure up to 1.6 cm on the right. Nodular thickening within the right greater left perirenal spaces. 1.2 cm cyst of the superior pole right kidney. Decompressed urinary bladder with mild wall thickening. Aorta and IVC are unremarkable. With moderate wall thickening of the distal stomach. There are several fluid-filled borderline dilate d loops of small bowel measuring up to approximately 2.8 cm. Moderate fecal retention of the rectum w ith circumferential rectal wall thickening on image 254. Heterogeneous enhancing 3.5 x 3.5 cm uterine mass adjacent 7 mm nodule on image 255. Masslike thickening of the cecum/ileocecal valve with increa sed enhancement adjacent meniscal lymph nodes measuring up to 1.3 x 0.8 cm. Additional wall thickenin g is noted within portions transverse and ascending colon. Demineralized appearance of the bones. Sev ere superior endplate compression deformity at L1 has progressively worsened from the 2019 comparison . Bilateral sacral insufficiency fractures. Healing subacute appearing nondisplaced anterolateral rib fractures. Healing subacute mildly displaced fractures of the right superior and inferior pubic rami . Subacute nondisplaced intertrochanteric fracture of the right femur with heterogeneous sclerosis. IMPRESSION: 1. Large malignant right breast mass with chest wall and cutaneous extension. 2. Moderate left with large right pleural effusions. 3. Pleural, pericardial, peritoneal/omental and adrenal metastasis. 4. Heterogeneously enhancing 3.5 cm uterine mass. 5. Irregular wall thickening within the cecum, ascending, transverse colon and rectum may be secondar y to serosal implants however should be correlated with colonoscopy to exclude colonic neoplasm. 6. Borderline dilation involving several loops of small bowel may represent partial obstruction. 7. Healing subacute nondisplaced intertrochanteric fracture of the right femur. Associated sclerosis may be secondary to bony healing however an underlying lesion with pathologic fracture could appear s imilarly. 8. Healing subacute right pelvic ring fractures with mild displacement. 9. Marked narrowing of the portal splenic confluence. 10. Additional findings as above. ACT 112: Negative or not required by law. The above report was generated using voice recognition software. It may contain grammatical, syntax o r spelling errors. Electronically signed by: Isidro Osborne M.D. 07/10/2022 11:03 AM
--- NOTE | 2022-07-10 13:19 | History & Physical Report ---
Date of Service July 10, 2022 Assessment & Plan (1) Generalized weakness: (2) Hyponatremia: (3) Breast mass, right: (4) Pleural effusion: (5) COVID-19: (6) UTI (urinary tract infection): Plan: 76 years old female with past medical history of osteoporosis, compression fracture of body of thoracic vertebrae was brought to the ER for generalized pain, weakness and failure to thrive. Possible related to UTI vs Covid 19 vs poor appetite Generalized weakness CT head showed no acute intracranial abnormality UA positive for Leukocytes and nitrite Received IV Cefepime on admission PT/OT eval Fall precaution Compression fracture Right pelvic Fracture Right femur fracture Hx osteoporosis CT lumbar showed fracture involving the right sacral wing which also appears subacute. moderate to severe superior endplate compression fracture at L1 which is likely chronic. Will consult ortho Will start on oxycodone, tylenol prn for pain PT/OT eval Hyponatremia Mostly due to poor oral intake. said that pt has not been eating, only drinking water. Na 124 today Received IVF with NSS Will check for urine Na, serum osmolarity and urine osmololarity Will consult nephrology Will repeat BMP later COVID 19 Denies any respiratory symptoms She does not meet criteria for dexamethasone since she is saturated well on RA continue monitor closely for any respiratory distress Right Breast mass Mostly malignancy CT chest showed abnormal skin thickening and enhancement within the right breast. There is also near diffuse masslike enhancement within the right breast which appears to involve the right pectoralis muscles. Ill-defined enhancing soft tissue surrounding the right axillary vessels and within the upper right paratracheal location concerning for metastatic disease. Case discussed with Oncology dr. Venegas that recommended fine needle guided u/s of the breast for definitive diagnosis Spoke to radiology about biopsy of the breast, unfortunately radiology does not have any hospital privilege to do breast biopsy inpatient Will need to arrange for outpatient breath biopsy Consider palliative care for goal of care does not want anyone/provider to discuss the finding of the breast lesion, pulmonary effusion, or cancer related info with the patient before talking to him Pleural effusion CT chest showed Large right and moderate left pleural effusions, likely malignant. Mostly related for possible breast cancer Will consult Pulm to eval for possible thoracentesis Abnormal UA UA positive for leukocytes and nitrite Received IV cefepime on admission Will check urine culture and blood cx Continue Cefepime IV for now, until cx resolves Will check Procalcitonin in am Uterine mass CT abd/pelvis showed heterogeneously enhancing 3.5 cm uterine mass. Will need outpatient work up B/L Edema Doppler of LE negative for DVT Wall thickening of Colon CT abd/pelvis showed Irregular wall thickening within the cecum, ascending, transverse colon and rectum Will need colonoscopy to exclude colonic neoplasm. DVT px currently on Eliquis ( called pharmacy that said the indication was for DVT px ) Code Status Full Code History of Present Illness Chief Complaint: Failure to thrive/ generalized weakness and body pain Primary Care Provider: Alejandra Venegas MD 76 years old female with past medical history of osteoporosis, compression fracture of body of thoracic vertebrae was brought to the ER for pain and failure to thrive. As per has been patient had a spine fracture about 1 year ago that was stable. But about 4 months ago she fell down a flight of stairs in [place], [place]. She was taken to an ER in [place] where she had imaging done that showed fracture of her right shoulder, right clavicles, right hip along with the pelvic. said she was stayed there for few hours then transferred to [facility] in [place], then the next day or 2 she was discharged to a nursing facility rehabilitation where she stayed there for 3 months getting therapy. said patient had episode of delirium and confusion while at [facility]. She was discharged from rehab then back to [place]. said patient has been declining in the last 4 weeks. She has been having lower extremity edema. She has been very weak or she is not able to move around. She has been having a lot of pain with movement. She has not had any appetite. She does not believe that she has COVID 19 because she does not have any respiratory symptoms. A CT chest showed abnormal skin thickening and enhancement within the right breast. A right breast is hard like a rock with skin changes, but said today was the first time she saw the right breast mass. said no one at [facility] mentioned anything about the right breast lesion. Patient is on Eliquis where has been given to her once at night but not sure the reason it was prescribed. I called the [facility] pharmacy in [place] that said the last time Eliquis was filled was March and the indication was for DVT prophylaxis. There is no cardiology note on Epic to suggest history of A-fib and no evidence of DVT in the past. does not want anyone/provider to discuss the finding of the breast lesion, pulmonary effusion, or cancer related info with the patient before talking to him. Mr. Mohit Kohler left his cell phone number to be contacted @ [phone]. Last colonoscopy report in [facility] was back in 2009 was normal and last mammogram report was 09/03 with no evidence of malignancy. Denies any chest pain, palpitation, dizziness, and shortness of breath. Allergies Allergy/AdvReac Type Severity Reaction Status Date / Time No Known Allergies Allergy Mild Verified 04/05/19 14:05 Home Medications Medication Instructions Recorded Confirmed Type calcium 1 tab PO DAILY 04/05/19 07/10/22 History carbonate,citrate-magnesium oxide 200 mg calcium-50 mg tablet cholecalciferol (vitamin D3) 50 2,000 units PO BID 04/05/19 07/10/22 History mcg (2,000 unit) tablet (Vitamin D3) magnesium citrate 100 mg tablet 500 mg PO DAILY 04/05/19 07/10/22 History multivitamin 1 tab PO DAILY 04/05/19 07/10/22 History polyethylene glycol 3350 17 gram 17 gm PO DAILY 04/05/19 07/10/22 History oral powder packet (Miralax) risedronate 35 mg tablet 35 mg PO WK 04/05/19 07/10/22 History vitamin B complex (B 2 tab PO DAILY 04/05/19 07/10/22 History Complex-Vitamin B12 tablet) apixaban 5 mg tablet (Eliquis) 5 mg PO BID 07/10/22 07/10/22 History sennosides 8.6 mg tablet (senna) 8.6 mg PO HS 07/10/22 07/10/22 History Past Med/Surg History Medical History Arthritis Diverticulitis Left humeral fracture Lumbar compression fracture L1 Osteoporosis Scoliosis Surgical History History of tonsillectomy Social History Smoking Status: Never smoker Hx Alcohol Use: No Hx Substance Use: No Preferred Language: Hebrew Communication Ability: Effective Visual Impairment: Limited Hearing Ability: Use of Hearing Aid Beliefs That Will Affect Care: None marital status: Current Living Situation: Spouse current occupational status: retired Feels Safe at Home: Yes Review of Systems Review of Systems: All systems reviewed & are unremarkable except as noted in HPI & below Physical Exam Physical Exam: General- No acute distress, cachetic Head- atraumatic Eyes- PERRL, EOMI, ENT- oropharynx clear Neck- supple, no JVD Lungs- clear to auscultation Heart- regular rhythm; + murmur Abdomen- normal bowel sounds, +hard nodule felt adjacent to the umbelical area Breast- Right breast hard lesion like a rock Extremities- +pitting edema B/L LE Neuro- alert, awake, oriented; PERRL, EOMI; no facial palsy; no dysarthria Skin- warm & dry Results & Data Results & Data Vital Signs (Past 12 Hours) Vital Signs Temp Pulse Pulse Resp BP BP Pulse Ox 07/10/22 11:00 95 H 18 103/81 94 07/10/22 09:00 93 H 18 131/77 98 07/10/22 07:13 07/10/22 06:47 36.8 C 101 H 17 130/78 96 07/10/22 06:42 107 H O2 Del Method O2 Flow Rate 07/10/22 11:00 Room Air 07/10/22 09:00 Nasal Cannula 2 07/10/22 07:13 Room Air 07/10/22 06:47 Room Air 07/10/22 06:42 Diagnostic Findings Laboratory Results WBC 8.34 K/ul (4.8-10.8) 07/10/22 08:09 RBC 4.51 M/uL (4.20-5.40) 07/10/22 08:09 Hgb 13.3 g/dl (12.0-16.0) 07/10/22 08:09 Hct 38.0 % (37.0-47.0) 07/10/22 08:09 MCV 84.3 fL (80.0-100.0) 07/10/22 08:09 MCH 29.5 pg (25.0-34.0) 07/10/22 08:09 MCHC 35.0 g/dL (32.0-36.0) 07/10/22 08:09 RDW Std Deviation 45.3 fL (36.4-46.3) 07/10/22 08:09 RDW Coeff of Talha 14.8 % (11.5-14.5) H 07/10/22 08:09 Plt Count 386 K/uL (130-400) 07/10/22 08:09 MPV 10.3 fL (9.4-12.4) 07/10/22 08:09 Immature Gran % (Auto) 0.2 % 07/10/22 08:09 Neut % (Auto) 82.9 % 07/10/22 08:09 Lymph % (Auto) 7.7 % 07/10/22 08:09 [place] % (Auto) 9.1 % 07/10/22 08:09 Eos % (Auto) 0.0 % 07/10/22 08:09 Baso % (Auto) 0.1 % 07/10/22 08:09 Neut # (Auto) 6.91 K/uL (1.40-6.50) H 07/10/22 08:09 Lymph # (Auto) 0.64 K/uL (1.2-3.4) L 07/10/22 08:09 [place] # (Auto) 0.76 K/uL (0.11-0.59) H 07/10/22 08:09 Eos # (Auto) 0.00 K/uL (0-0.50) 07/10/22 08:09 Baso # (Auto) 0.01 K/uL (0-0.2) 07/10/22 08:09 Immature Gran # (Auto) 0.02 K/uL (0.01-0.20) 07/10/22 08:09 PT 11.3 Seconds (9.0-12.0) 07/10/22 08:09 INR 1.0 (0.9-1.1) 07/10/22 08:09 APTT 25.9 Seconds (21.0-31.0) 07/10/22 08:09 PTT Ratio 0.9 07/10/22 08:09 Sodium 124 mmol/L (136-145) L 07/10/22 08:09 Potassium 4.8 mmol/L (3.5-5.1) 07/10/22 08:09 Chloride 95 mmol/L (98-107) L 07/10/22 08:09 Carbon Dioxide 19 mmol/L (21-32) L 07/10/22 08:09 Anion Gap 10 (3-11) 07/10/22 08:09 BUN 42 mg/dl (6-23) H 07/10/22 08:09 Creatinine 1.19 mg/dl (0.6-1.2) 07/10/22 08:09 Est Cr Clr Drug Dosing 32.8 ml/min 07/10/22 08:09 Est GFR ( Amer) 52.1 ml/min 07/10/22 08:09 Est GFR (Non-Af Amer) 44.9 ml/min 07/10/22 08:09 BUN/Creatinine Ratio 35.3 (10-20) H 07/10/22 08:09 Glucose 114 mg/dl (70-99(Fasting)) H 07/10/22 08:09 Lactate 1.0 mmol/L (0.4-2.0) 07/10/22 08:17 Calcium 9.3 mg/dl (8.6-10.3) 07/10/22 08:09 Magnesium 2.3 mg/dl (1.7-2.4) 07/10/22 08:09 Total Bilirubin 1.0 mg/dl (0.2-1.0) 07/10/22 08:09 AST 14 U/L (13-39) 07/10/22 08:09 ALT 11 U/L (7-52) 07/10/22 08:09 Alkaline Phosphatase 57 U/L (34-104) 07/10/22 08:09 Troponin I High Sens 13.6 pg/ml (0-14) 07/10/22 08:09 B-Natriuretic Peptide 70 pg/ml (0-100) 07/10/22 08:09 Total Protein 5.4 gm/dl (6.0-8.3) L 07/10/22 08:09 Albumin 3.0 gm/dl (3.4-5.0) L 07/10/22 08:09 Globulin 2.4 gm/dl (2.5-4.0) L 07/10/22 08:09 Albumin/Globulin Ratio 1.3 (0.9-2) 07/10/22 08:09 Lipase < 3 U/L (11-82) L 07/10/22 08:09 TSH 1.586 uIu/ml (0.300-4.500) 07/10/22 08:09 Urine Color Dark Yellow 07/10/22 09:02 Urine Appearance Clear (Clear) 07/10/22 09:02 Urine pH 5.0 (4.5-7.5) 07/10/22 09:02 Ur Specific [place] 1.028 (1.000-1.030) 07/10/22 09:02 Urine Protein 1+ (Negative) H 07/10/22 09:02 Urine Glucose (UA) Negative (Negative) 07/10/22 09:02 Urine Ketones Negative (Negative) 07/10/22 09:02 Urine Blood 1+ (Negative) H 07/10/22 09:02 Urine Nitrite Positive (Negative) A 07/10/22 09:02 Urine Bilirubin 2+ (Negative) H 07/10/22 09:02 Urine Urobilinogen Negative (Negative) 07/10/22 09:02 Ur Leukocyte Esterase 1+ (Negative) H 07/10/22 09:02 Urine WBC (Auto) 1-5 /hpf (0-5) 07/10/22 09:02 Urine RBC (Auto) 0-4 /hpf (0-4) 07/10/22 09:02 U Hyaline Cast (Auto) 1-5 /lpf (0-5) 07/10/22 09:02 U Epithel Cells (Auto) 5-10 /lpf (0-5) H 07/10/22 09:02 Urine Bacteria (Auto) Negative (Negative) 07/10/22 09:02 SARS-CoV-2 (PCR) POSITIVE (Negative) A* 07/10/22 Unknown Influenza Type A (PCR) Negative (Neg) 07/10/22 Unknown Influenza Type B (PCR) Negative (Neg) 07/10/22 Unknown RSV (RT-PCR) Negative (Neg) 07/10/22 Unknown Impressions Abdomen/Pelvis CT 07/10/22 07:[address] WITH IV CONTRAST HISTORY: Acute chest and abdominal pain abdominal pain TECHNIQUE: Multiaxial CT images of the abdomen and pelvis were performed following the IV administration of 94 cc of Optiray, A dose lowering technique was utilized adhering to the principles of ALARA. COMPARISON STUDY: Chest CT and CT lumbar spine studies of same day, lumbar spine CT 03/06/2019 FINDINGS: Partially imaged heterogeneous enhancement throughout the majority of the right breast measures up to 8.2 x 3.0 cm with associated skin thickening and enhancement. Additional enhancement adjacent right chest wall. Anasarca. Moderate left and large right pleural effusions. Right basilar consolidation/volume loss. Additional nodular thickening of the pericardium and right hemidiaphragmatic pleural reflections. Unremarkable spleen. Moderately atrophic pancreas. Distended gallbladder. Unremarkable liver. There is narrowing of the portal splenic confluence. Masslike thickening of the adrenal glands measure up to 1.6 cm on the right. Nodular thickening within the right greater left perirenal spaces. 1.2 cm cyst of the superior pole right kidney. Decompressed urinary bladder with mild wall thickening. Aorta and IVC are unremarkable. With moderate wall thickening of the distal stomach. There are several fluid- filled borderline dilated loops of small bowel measuring up to approximately 2.8 cm. Moderate fecal retention of the rectum with circumferential rectal wall thickening on image 254. Heterogeneous enhancing 3.5 x 3.5 cm uterine mass adjacent 7 mm nodule on image 255. Masslike thickening of the cecum/ileocecal valve with increased enhancement adjacent meniscal lymph nodes measuring up to 1.3 x 0.8 cm. Additional wall thickening is noted within portions transverse and ascending colon. Demineralized appearance of the bones. Severe superior endplate compression deformity at L1 has progressively worsened from the 2019 comparison. Bilateral sacral insufficiency fractures. Healing subacute appearing nondisplaced anterolateral rib fractures. Healing subacute mildly displaced fractures of the right superior and inferior pubic rami. Subacute nondisplaced intertrochanteric fracture of the right femur with heterogeneous sclerosis. IMPRESSION: 1. Large malignant right breast mass with chest wall and cutaneous extension. 2. Moderate left with large right pleural effusions. 3. Pleural, pericardial, peritoneal/omental and adrenal metastasis. 4. Heterogeneously enhancing 3.5 cm uterine mass. 5. Irregular wall thickening within the cecum, ascending, transverse colon and rectum may be secondary to serosal implants however should be correlated with colonoscopy to exclude colonic neoplasm. 6. Borderline dilation involving several loops of small bowel may represent partial obstruction. 7. Healing subacute nondisplaced intertrochanteric fracture of the right femur. Associated sclerosis may be secondary to bony healing however an underlying lesion with pathologic fracture could appear similarly. 8. Healing subacute right pelvic ring fractures with mild displacement. 9. Marked narrowing of the portal splenic confluence. 10. Additional findings as above. ACT 112: Negative or not required by law. The above report was generated using voice recognition software. It may contain grammatical, syntax or spelling errors. Electronically signed by: Isidro Osborne M.D. 07/10/2022 11:[address] 07/10/22 07:13 CT head/brain wo con CLINICAL HISTORY: 76 years-old Female with change in mental status. Acutely altered mental status TECHNIQUE: Multiple axial CT images of the head were obtained without contrast. A dose lowering technique was utilized adhering to the principles of ALARA. COMPARISON: Brain MRI 10/10/2014. FINDINGS: No acute intracranial hemorrhage, midline shift, intracranial mass, hydrocephalus, territorial ischemia or abnormal extra-axial collection. Involutional changes with chronic microvascular ischemic disease. The calvarium is intact. Calcification noted within the left posterior fossa on image 9 series 2. The paranasal sinuses, mastoid air cells, and middle ear cavities are clear. Cardiomegaly. 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 IMPRESSION: No acute intracranial abnormality identified. ACT 112: Negative or not required by law. The above report was generated using voice recognition software. It may contain grammatical, syntax or spelling errors. Electronically signed by: Isidro Osborne M.D. 07/10/2022 10:[address] 07/10/22 07:[address] DOSE: 1065.30 mGy.cm HISTORY: low back pain TECHNIQUE: Multiaxial CT images of the lumbar spine were performed and reformatted in the sagittal and coronal plane following the use of intravenous contrast. A dose lowering technique was utilized adhering to the principles of ALARA. COMPARISON: Lumbar spine CT 03/06/2019. FINDINGS: There is a moderate to severe compression deformity at L1 which has progressed in the interval. This demonstrates up to 75% loss of height anteriorly. There is 3 mm of retropulsion of the posterior superior corner resulting in mild central canal narrowing at this level. This favors a chronic fracture. No significant paravertebral edema. No additional fractures within the lumbar spine. Moderate facet degenerative changes throughout the lumbar spine. There is a fracture involving the right sacral wing which also appears subacute. This may represent an insufficiency fracture. This likely involves the S3 vertebral body. Subtle sclerosis within the left sacral wing may represent an additional insufficiency fracture. Bilateral pleural effusions are better appreciated on the same day chest CT. Presacral edema and body wall edema is also noted. IMPRESSION: 1. A moderate to severe superior endplate compression fracture at L1 which is likely chronic. 2. No definite acute fractures within the lumbar spine. 3. Sacral fractures as described above which favor insufficiency fractures. 4. Bilateral pleural effusions. ACT 112: Negative or not required by law. Electronically signed by: Sony Hunter M.D. 07/10/2022 10:[address] 07/10/22 07:[address] CONTRAST CT DOSE: HISTORY: Atypical chest pain TECHNIQUE: Multiaxial CT images of the chest were performed following the intravenous administration of contrast. A dose lowering technique was utilized adhering to the principles of ALARA. COMPARISON: None. FINDINGS: Thoracic spine levoscoliosis. A moderate to severe chronic compression deformities again noted at L1. Old, healed right anterior rib fractures. Old, healed right clavicle and bilateral humeral neck fractures. No acute fractures identified within the chest. No suspicious lytic or blastic osseous lesions. There is diffuse body wall edema. The thyroid gland enhances normally. Abnormal skin thickening and enhancement within the right breast. There is also near diffuse masslike enhancement within the right breast which appears to involve the right pectoralis muscles. Therefore, this is highly suspicious for a breast malignancy. There is also ill-defined enhancing soft tissue surrounding the right axillary vessels which may represent metastatic disease. Limited views of the upper abdomen demonstrate a normal liver and spleen. Nodular thickening within the bilateral adrenal glands is noted. There is a small amount of ascites. The gallbladder is distended. Normal caliber esophagus. The heart is mildly enlarged. There is a large right and moderate left pleural effusion. There is complete atelectasis of the right middle and lower lobes as well as partial atelectasis of the right upper lobe posteriorly. This is likely due to compression from the large right pleural effusion. Subtle ill-defined soft tissue surrounding the main portal vein which is moderately narrowed. This is best seen on image 247. No definite hilar lymphadenopathy. A prominent ill- defined upper right paratracheal lymph node on image 77 which measures 1.5 cm. No evidence for an aortic dissection. The main pulmonary arteries are patent. No pneumothorax. The central airways are patent. Patchy densities within the left lower lobe favor atelectasis. There are also patchy airspace opacities within the right upper lobe. These are nonspecific could be due to atelectasis or a developing pneumonia. Irregular soft tissue enhancement within the anterior diaphragmatic space and along the base of the right pleura suggesting metastatic disease. There is also abnormal thickening on the right diaphragmatic [place]. Mild anterior pleural thickening and enhancement which is also concerning for metastatic disease. Mild soft tissue enhancement within the retrosternal space concerning for metastatic disease. IMPRESSION: 1. Abnormal skin thickening and enhancement within the right breast. There is also near diffuse masslike enhancement within the right breast which appears to involve the right pectoralis muscles. Therefore, this is highly suspicious for a breast malignancy. 2. Ill-defined enhancing soft tissue surrounding the right axillary vessels and within the upper right paratracheal location concerning for metastatic disease. 3. Large right and moderate left pleural effusions, likely malignant. 4. Patchy airspace opacities within the right upper lobe which could represent atelectasis or a developing pneumonia. 5. Nodular thickening of the bilateral adrenal glands. 6. Subtle ill-defined soft tissue surrounding the main portal vein which is mode rately narrowed. This is nonspecific but could represent metastatic disease. 7. Small amount of ascites. 8. Additional sites of metastatic disease as described above. ACT 112: Negative or not required by law. Electronically signed by: Sony Hunter M.D. 07/10/2022 10:51 AM Venous Doppler Study 07/10/22 07:16 BILATERAL LOWER EXTREMITY VENOUS DOPPLER HISTORY: leg pain/edema COMPARISON STUDY: None. FINDINGS: There is normal compressibility, flow, and augmentation within the bilateral lower extremity deep venous systems. A 37 x 19 x 11 mm left popliteal cyst. IMPRESSION: No DVT within the right or left lower extremity. ACT 112: Negative or not required by law. Electronically signed by: Sony Hunter M.D. 07/10/2022 10:10 AM Code Status & VTE Plan VTE Prophylaxis Plan VTE Prophylaxis will be ordered: Yes
[2022-07-10] MEDS ORDERED: ACETAMINOPHEN 325 MG TAB PO PRN (15:31)
[2022-07-10] MEDS: LIDOCAINE 5% 1 PATCH TD SCH (18:05)
--- NOTE | 2022-07-10 18:05 | Electrocardiogram Report ---
Test Reason : Blood Pressure : / mmHG Vent. Rate : 101 BPM Atrial Rate : 101 BPM P-R Int : 176 ms QRS Dur : 080 ms QT Int : 306 ms P-R-T Axes : 023 -13 162 degrees QTc Int : 396 ms Poor data quality, interpretation may be adversely affected Sinus tachycardia with Premature atrial complexes Low voltage QRS Nonspecific ST abnormality Abnormal ECG No previous ECGs available Confirmed by Rodríguez Laura ([id number]) on 07/10/2022 6:04:41 PM Referred By: REFERRED SELF Confirmed By:Zaheer Laura
--- NOTE | 2022-07-10 18:08 | Electrocardiogram Report ---
Test Reason : Blood Pressure : / mmHG Vent. Rate : 096 BPM Atrial Rate : 096 BPM P-R Int : 136 ms QRS Dur : 080 ms QT Int : 428 ms P-R-T Axes : 000 001 108 degrees QTc Int : 540 ms Sinus rhythm with Premature supraventricular complexes Low voltage QRS Nonspecific ST abnormality Abnormal ECG When compared with ECG of 10-JUL-2022 06:45, (unconfirmed) QT has lengthened Confirmed by Rodríguez Laura ([id number]) on 07/10/2022 6:07:59 PM Referred By: REFERRED SELF Confirmed By:Zaheer Laura
[2022-07-10 19:20] LABS: Anion Gap 11 (3-11); BUN Creatinine Ratio 35.7 (10-20); Blood Urea Nitrogen 46 mg/dl (6-23); Calcium 9.1 mg/dl (8.6-10.3); Carbon Dioxide 18 mmol/L (21-32); Chloride 96 mmol/L (98-107); Creatinine Clr Calc Pharmacy 30.3 ml/min; Est GFR (African American) 47.2 ml/min; Est GFR (Non-African American) 40.8 ml/min; Glucose 104 mg/dl (70-99(Fasting)); Sodium 125 mmol/L (136-145)
[2022-07-10] MEDS: CHOLECALCIFEROL 1,000 UNITS 25 MCG TAB PO SCH (21:08)
[2022-07-10] MEDS: APIXABAN 5 MG TABLET PO SCH (21:08)
[2022-07-11] MEDS: CEFEPIME 2,000 MG in SYRINGE 0 ML IV SCH ×2 (00:29→12:18)
[2022-07-11] MEDS: APIXABAN 5 MG TABLET PO SCH ×2 (08:49→22:32)
[2022-07-11] MEDS: CHOLECALCIFEROL 1,000 UNITS 25 MCG TAB PO SCH (08:50)
[2022-07-11] MEDS: LIDOCAINE 5% 1 PATCH TD SCH (08:52)
[2022-07-11] MEDS ORDERED: MULTIVITAMIN TAB PO SCH (09:00)
[2022-07-11] MEDS ORDERED: VITAMIN B COMPLEX TAB PO SCH (09:00)
[2022-07-11] MEDS ORDERED: CALCIUM CARBONATE 1250MG TAB PO SCH (09:00)
[2022-07-11] MEDS ORDERED: MAGNESIUM OXIDE 400 MG TAB PO SCH (09:00)
[2022-07-11 10:36] LABS: BUN Creatinine Ratio 33.6 (10-20); Calcium 9.2 mg/dl (8.6-10.3); Creatinine Clr Calc Pharmacy 25.7 ml/min; Est GFR (African American) 38.7 ml/min; Est GFR (Non-African American) 33.4 ml/min; Magnesium 2.4 mg/dl (1.7-2.4); Phosphorus 4.2 mg/dl (2.5-4.9); Potassium 5.4 mmol/L (3.5-5.1)
[2022-07-11] MEDS ORDERED: STAT IV STA (10:42)
[2022-07-11] MEDS ORDERED: SODIUM BICARBONATE 8.4% 150 MEQ in DEXTROSE 5% 1,000 ML IV SCH (10:45)
--- NOTE | 2022-07-11 10:51 | Nephrology Consultation ---
Date of Consultation July 11, 2022 Assessment & Plan (1) Hyponatremia: Hyponatremia is likely multifactorial including cancer and poor p.o. intake. Sodium went down to 122. Serum osmolality of 276. -We will maintain the fluid restriction of 1.2 L daily. I do not think patient is even eating that much -Monitor sodium daily (2) RUSS (acute kidney injury): Acute kidney injury: Likely due to metastatic cancer. Patient has hyperkalemia and metabolic acidosis. She also has edema. She has bilateral pleural effusions. -Monitor potassium twice daily. We will give Lokelma 10 g twice daily if potassium is above 5.5. -Palliative medicine have been consulted. Hospice care is recommended History of Present Illness Reason for Consultation: Hyponatremia Requesting Physician: Vicky Vera DO Attending Physician: Vicky Vera DO History of Present Illness This is a ventilator old female with history of osteoporosis and multiple fractures including compression fracture of thoracic vertebra, right femoral fracture, rib fractures and pelvic fracture who was admitted with weakness found to have a right breast mass and imaging suspicious for metastatic breast cancer. She was found to have hyponatremia with sodium of 124 yesterday but now down to 122. She also has hyperkalemia 5.4. Patient has not been eating. She denies shortness of breath. She is not a reliable historian but keeps referring to a severe accident while in [place] when she fell and broke several bones. She complains of numbness in the legs. Legs are also swollen. No shortness of breath. She has poor appetite and nausea. Allergies Allergy/AdvReac Type Severity Reaction Status Date / Time No Known Allergies Allergy Mild Verified 04/05/19 14:05 Home Medications Medication Instructions Recorded Confirmed Type calcium 1 tab PO DAILY 04/05/19 07/10/22 History carbonate,citrate-magnesium oxide 200 mg calcium-50 mg tablet cholecalciferol (vitamin D3) 50 2,000 units PO BID 04/05/19 07/10/22 History mcg (2,000 unit) tablet (Vitamin D3) magnesium citrate 100 mg tablet 500 mg PO DAILY 04/05/19 07/10/22 History multivitamin 1 tab PO DAILY 04/05/19 07/10/22 History polyethylene glycol 3350 17 gram 17 gm PO DAILY 04/05/19 07/10/22 History oral powder packet (Miralax) risedronate 35 mg tablet 35 mg PO WK 04/05/19 07/10/22 History vitamin B complex (B 2 tab PO DAILY 04/05/19 07/10/22 History Complex-Vitamin B12 tablet) apixaban 5 mg tablet (Eliquis) 5 mg PO BID 07/10/22 07/10/22 History sennosides 8.6 mg tablet (senna) 8.6 mg PO HS 07/10/22 07/10/22 History Patient History Medical History Arthritis Diverticulitis Left humeral fracture Lumbar compression fracture L1 Osteoporosis Scoliosis Surgical History History of tonsillectomy Social History Smoking Status: Never smoker Second Hand Exposure: No; Do You Dip or Chew Tobacco: No; Tobacco Cessation Education Requested by Patient: No Hx Alcohol Use: No Hx Substance Use: No Preferred Language: Azeri Communication Ability: Effective Visual Impairment: Limited Hearing Ability: Use of Hearing Aid 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 Beliefs That Will Affect Care: None marital status: Current Living Situation: Spouse current occupational status: retired Other Information That Helps Us Care for You: No Feels Safe at Home: Yes Safety Concerns: Feels Safe At This Time Assistive Devices: Hearing Aid - Bilateral and Hospital Bed Review of Systems Review of Systems: All other systems were reviewed and negative except as noted in HPI Physical Exam Physical Exam: General exam: Appears comfortable, no acute distress HEENT: Pupils are equal and reactive to light Neck: No JVD, neck is supple trachea is midline Respiratory system: Clear breath sounds bilaterally. Right breast peau d'orange Gastrointestinal: Abdomen is soft, non distended, non tender, bowel sounds are present CVS: Regular rate and rhythm. No murmurs, rubs or gallops Musculoskeletal: No joint or muscle tenderness Extremities: Non tender, 2+ edema, peripheral pulses are present Neuro: Oriented, no tremors, no focal neurological deficits Skin: No rashes Results & Data Vital Signs (Past 12 Hours) Vital Signs Temp Pulse Pulse Resp BP Pulse Ox O2 Del Method 07/11/22 10:19 Room Air 07/11/22 08:16 36.5 C 103 H 20 121/79 95 Room Air 07/11/22 07:38 103 H 07/11/22 04:00 36.3 C L 100 H 22 116/74 96 Room Air 07/10/22 23:00 36.3 C L 101 H 22 108/78 95 Room Air 07/11/22 00:49 102 H Laboratory Results 07/11/22 09:45 07/11/22 09:45 Phosphorus 4.2 Albumin 3.0 L
[2022-07-11] MEDS: oxyCODONE HCL IR 5 MG TAB (IMMEDIATE RELEASE) PO PRN ×2 (11:45→17:42)
[2022-07-11] MEDS: CEFEPIME 1,000 MG in SYRINGE 0 ML IV SCH (12:23)
--- NOTE | 2022-07-11 13:12 | Pulmonary Consultation ---
Date of Consultation July 11, 2022 Assessment & Plan (1) Bilateral pleural effusion: Patient is currently saturating in the 90s on room air. She denies any significant dyspnea at rest. She took a dose of Eliquis yesterday. She is in severe pain and positioning for thoracentesis would be quite difficult. I would also prefer that Eliquis washout of her system over the course of the next 48 to 72 hours prior to attempting a thoracentesis. Recommend palliative care consultation given her poor performance status and likely metastatic breast cancer. Recommend oncology evaluation as well. (2) Declining performance status: History of Present Illness Reason for Consultation: Bilateral pleural effusions concerning for malignancy Attending Physician: Vicky Vera DO History of Present Illness 76-year-old female with a history of osteoporosis, compression fractures and dementia who presents to the hospital for essentially failure to thrive. History obtained from the who notes that she has not been able to eat anything more than that she had for the past 2 weeks. She has had significant weight loss. Prior to these events she was able to walk with a cane and assistance, but lately she has been unable to get out of bed. Patient denies any significant shortness of breath at rest. She does endorse back pain in her lower spine which is currently an 8 out of 10. She had a chest CT which revealed large bilateral effusions and masslike enhancement within the right breast involving the right pectoralis muscles. Nodular thickening of the adrenal glands were also seen. Allergies Allergy/AdvReac Type Severity Reaction Status Date / Time No Known Allergies Allergy Mild Verified 04/05/19 14:05 Home Medications Medication Instructions Recorded Confirmed Type calcium 1 tab PO DAILY 04/05/19 07/10/22 History carbonate,citrate-magnesium oxide 200 mg calcium-50 mg tablet cholecalciferol (vitamin D3) 50 2,000 units PO BID 04/05/19 07/10/22 History mcg (2,000 unit) tablet (Vitamin D3) magnesium citrate 100 mg tablet 500 mg PO DAILY 04/05/19 07/10/22 History multivitamin 1 tab PO DAILY 04/05/19 07/10/22 History polyethylene glycol 3350 17 gram 17 gm PO DAILY 04/05/19 07/10/22 History oral powder packet (Miralax) risedronate 35 mg tablet 35 mg PO WK 04/05/19 07/10/22 History vitamin B complex (B 2 tab PO DAILY 04/05/19 07/10/22 History Complex-Vitamin B12 tablet) apixaban 5 mg tablet (Eliquis) 5 mg PO BID 07/10/22 07/10/22 History sennosides 8.6 mg tablet (senna) 8.6 mg PO HS 07/10/22 07/10/22 History Patient History Medical History (Updated 07/11/22 @ 13:12 by Abhi Marie MD) Arthritis Bilateral pleural effusion Declining performance status Diverticulitis Left humeral fracture Lumbar compression fracture L1 Osteoporosis Scoliosis Surgical History History of tonsillectomy Social History Smoking Status: Never smoker Second Hand Exposure: No; Do You Dip or Chew Tobacco: No; Tobacco Cessation Education Requested by Patient: No Hx Alcohol Use: No Hx Substance Use: No Preferred Language: Faroese Communication Ability: Effective Visual Impairment: Limited Hearing Ability: Use of Hearing Aid 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 Eyes: Pupils are equal round and reactive to light. Conjunctivae are normal. Anicteric sclera. Ears nose, mouth and throat: Mallampati class 2. Normal posterior oropharynx. Uvula is midline. Neck: Trachea is midline. Visual inspection is normal. Respiratory: Diminished bilaterally. Mild tachypnea. Cardiovascular: Regular rate and rhythm. No murmurs. No edema. Gastrointestinal: Normal bowel sounds, soft, nontender and nondistended. No hepatosplenomegaly noted. Musculoskeletal: No cyanosis. Patient is able to move all extremities. Strength is 5 out of 5 in the upper and lower extremities. Skin: Thickening noted on the skin of the right breast. Neurologic: No obvious focal neurological deficits seen. Psychiatric: Alert and oriented x3 with a euthymic affect. Results & Data Results & Data Vital Signs (Past 12 Hours) Vital Signs Temp Pulse Pulse Resp BP Pulse Ox O2 Del Method 07/11/22 10:44 36.5 C 107 H 18 118/84 93 Room Air 07/11/22 10:19 Room Air 07/11/22 08:16 36.5 C 103 H 20 121/79 95 Room Air 07/11/22 07:38 103 H 07/11/22 04:00 36.3 C L 100 H 22 116/74 96 Room Air PG Care Time/CCT Total # of Minutes Spent Total Time Spent with Patient: Total time spent is greater than 50% in coordination of care (as documented) at patient's floor/unit and/or counseling patient: Coding Level of Care Code 97167 INT INP/OBS CARE 255MIN Diagnoses Bilateral pleural effusion J90 Declining performance status R53.81
[2022-07-11] MEDS ORDERED: HYDROmorphone INJ 0.5 MG/0.5 ML SYR IV STA (18:20)
[2022-07-11] MEDS ORDERED: oxyCODONE HCL SOLN 5 MG/5 ML UDC PO PRN (18:21)
[2022-07-11] MEDS ORDERED: HYDROmorphone INJ 0.5 MG/0.5 ML SYR IV PRN (18:21)
--- NOTE | 2022-07-11 18:38 | Hospitalist Progress Note ---
Date of Service July 11, 2022 Assessment & Plan (1) Cancer associated pain: Plan: chronic L1 compression fracture and sacral insufficiency fractures present on Lumbar CT. (2) Breast cancer metastasized to multiple sites: Plan: severe pain and malnutrition present 2/2 progressed metastatic breast cancer. There is no pathology yet to determine diagnosis and diagnosis presumptive based on clinical exam and imaging. Will plan to consult radiation oncology to help with cancer related pain in her back, but this won't happen until wednesday. Intermittent confusion reported today by nurse, so would consider brain MRI with contrast, however, she has RUSS and cannot tolerate lying flat. Add fentanyl patch 25mcg TD now. Give dilaudid 0.5mg IV now. Cont with oxycodone but change to liquid for easier intake when needed. Consult rad onc (3) Hyponatremia: Plan: multifactorial. Plan per nephrology includes fluid restriction. Cont aggressive pain and nausea control. Encourage PO intake once she is more comfortable. (4) RUSS (acute kidney injury): Plan: plan per nephrology, bmp in am/. (5) Generalized weakness: (6) Pleural effusion: Plan: presumed metastatic pleural effusion, no thoracentesis at this time per pulmonary while she is breathing well on room air. Will cont to monitor and consider this is breathing worsens. (7) COVID-19: Plan: isolation, no specific treatments needed. (8) Malnutrition: Plan: [place] supplements TID per nutrition who saw her today (9) UTI (urinary tract infection): (10) Pneumonia: Plan: cont cefepime for pna and UTI. apixaban Full Code Dispo-uncertain at this time. Palliative consulted for hospice consideration. reports that diagnosis really was just discussed this week for the first time although she has been having issues for months. Vicky Vera dO [facility] Hospitalist Admission and Anticipated Discharge Date Admission Date: July 10, 2022 Subjective 76 yo F with metastatic breast cancer presents with severe pain and swelling she is in severe pain calling out for help when I arrived to bedside this evening she is in supine position and holding arms close to her chest Pain is reported "all over my back" she is very uncomfortable She confirms she understands that she has metastatic breast cancer she has been taking oxycodone about twice daily at home but here it is not effectively controling her pain PO intake is limited. Review of Systems Review of Systems: All systems were reviewed and negative except as indicated on subjective above Physical Exam Physical Exam: CONSTITUTIONAL: cachectic, vitals as above, +moderate distress 2/2 pain EYES: normal conjunctivae, no scleral icterus ENT: external ear and nose normal NECK: trachea midline RESPIRATORY: clear to auscultation bilaterally, no crackles, rales or wheezes, normal respiratory effort CARDIOVASCULAR: tachy rate and rhythm, S1 and 2 heard without murmurs, gallops or rubs, no JVD, 3+ peripheral edema bilaterally CHEST: inspection of chest was normal GASTROINTESTINAL: soft, nontender, ND, no guarding MUSCULOSKELETAL: strength 5/5 throughout, head is normocephalic and atraumatic SKIN: warm and dry NEUROLOGIC: CN 2-12 grossly intact, no sensory deficit, normal cognition, normal speech PSYCHIATRIC: alert in distress 2/2 pain. Results & Data Results & Data Vital Signs (Past 12 Hours) Vital Signs Temp Pulse Pulse Resp BP BP Pulse Ox 07/11/22 17:31 36.7 C 110 H 16 113/79 95 07/11/22 10:44 36.5 C 107 H 18 118/84 93 07/11/22 10:19 07/11/22 08:16 36.5 C 103 H 20 121/79 95 07/11/22 07:38 103 H O2 Del Method 07/11/22 17:31 Room Air 07/11/22 10:44 Room Air 07/11/22 10:19 Room Air 07/11/22 08:16 Room Air 07/11/22 07:38 Laboratory Results BMP 07/10/22 07/10/22 07/11/22 18:02 19:46 09:45 Sodium 125 L 122 L Potassium TNP 5.0 5.4 H Chloride 96 L 93 L Carbon Dioxide 18 L 17 L BUN 46 H 51 H Creatinine 1.29 H 1.52 H Glucose 104 H 102 H Calcium 9.1 9.2 Liver Function 07/11/22 Range/Units 09:45 Albumin 3.0 L (3.4-5.0) gm/dl Medications Administered Current Inpatient Medications Acetaminophen (Acetaminophen 325 Mg Tab) 650 mg PO Q6H PRN PRN Reason: Mild Pain (Scale 1, 2, 3) Stop: 08/09/22 15:44 Apixaban (Apixaban 5 Mg Tablet) 5 mg PO BID [facility] Stop: 08/09/22 20:59 Last Admin: 07/11/22 08:49 Dose: 5 mg Fentanyl (Fentanyl 25 Mcg/Hr Tdsy) 25 mcg TD Q3D [facility] Stop: 07/25/22 18:29 Hydromorphone HCl (Hydromorphone Inj 0.5 Mg/0.5 Ml Syr) 0.5 mg IV NOW STA Stop: 07/11/22 18:21 Hydromorphone HCl (Hydromorphone Inj 0.5 Mg/0.5 Ml Syr) 0.5 mg IV Q6H PRN PRN Reason: severe pain 6+ Stop: 07/25/22 18:20 Cefepime HCl 1,000 mg/ Syringe 10 mls @ 5 mls/min IV Q12H [facility]; Protocol Stop: 07/13/22 00:00 Last Admin: 07/11/22 12:23 Dose: 5 mls/min Miscellaneous (Check Fentanyl Patch Placement) 1 each N/A QS [facility] Stop: 08/11/22 00:00 Miscellaneous (Fentanyl Patch Remove & Waste) 1 each N/A Q3D [facility] Stop: 08/10/22 18:29 Oxycodone HCl (Oxycodone Hcl Soln 5 Mg/5 Ml Udc) 5 mg PO Q6H PRN PRN Reason: severe pain 6+ Stop: 07/25/22 18:20 (8) Malnutrition Malnutrition type: protein-calorie malnutrition Protein-calorie malnutrition severity: severe Qualified Code(s): E43 - Unspecified severe protein-calorie malnutrition (9) UTI (urinary tract infection) Hematuria presence: without hematuria Urinary tract infection type: acute cystitis Qualified Code(s): N30.00 - Acute cystitis without hematuria
[2022-07-11] MEDS: fentaNYL 25 MCG/HR TDSY TD SCH (19:57)
[2022-07-11 23:08] LABS: Sodium Random Urine < 10 mmol/L
[2022-07-11 23:13] LABS: Creatinine Urine Random 100.7 mg/dl; Protein Creatinine Ratio Urine 0.6 (0-0.2)
--- NOTE | 2022-07-11 23:33 | Communication Note ---
Date of Service: July 11, 2022 Made aware by RN of patient having swallowing delay and trouble following commands. AP Aspiration risk N.p.o. status until CHIEF TECHNICIAN eval in Change Eliquis (for DVT prophylaxis as per AM provider note) to Heparin subcu for now.
[2022-07-11] MEDS ORDERED: ACETAMINOPHEN 1,000 MG/100 ML VIAL IV PRN (23:34)
[2022-07-11] MEDS ORDERED: ALBUMIN 25% 100 mL 25 GM/100 ML VIAL IV ONE (23:45)
[2022-07-12] MEDS: CEFEPIME 1,000 MG in SYRINGE 0 ML IV SCH ×3 (00:09→23:48)
[2022-07-12 00:24] LABS: BUN Creatinine Ratio 32.2 (10-20); Calcium 9.2 mg/dl (8.6-10.3); Creatinine Clr Calc Pharmacy 21.7 ml/min; Est GFR (African American) 31.6 ml/min; Est GFR (Non-African American) 27.2 ml/min; Potassium 5.3 mmol/L (3.5-5.1)
[2022-07-12] MEDS ORDERED: DEXTROSE 50% 50 ML SYRINGE IV ONE (01:29)
[2022-07-12] MEDS ORDERED: INSULIN HUMAN REGULAR PER UNIT 5 UNITS in SYRINGE 4.95 ML IV ONE (01:30)
[2022-07-12] MEDS ORDERED: SODIUM BICARB 8.4% INJ 50 MEQ/50 ML SYR IV ONE (01:30)
[2022-07-12] MEDS: CHECK fentaNYL PATCH PLACEMENT SCH ×3 (02:36→15:03)
[2022-07-12 04:55] LABS: Albumin Level 3.7 gm/dl (3.4-5.0); BUN Creatinine Ratio 29.4 (10-20); Calcium 9.9 mg/dl (8.6-10.3); Creatinine Clr Calc Pharmacy 19.1 ml/min; Est GFR (African American) 27.1 ml/min; Est GFR (Non-African American) 23.4 ml/min; Magnesium 2.6 mg/dl (1.7-2.4); Phosphorus 4.4 mg/dl (2.5-4.9); Potassium 4.9 mmol/L (3.5-5.1)
[2022-07-12 05:06] LABS: Hematocrit (blood only) 33.9 % (37.0-47.0); Hemoglobin 11.5 g/dl (12.0-16.0); Mean Corpuscular Hgb Conc 33.9 g/dL (32.0-36.0); Mean Corpuscular Volume 88.5 fL (80.0-100.0); Mean Platelet Volume 10.2 fL (9.4-12.4); Platelet Count 284 K/uL (130-400); RDW Coefficient of Variation 14.9 % (11.5-14.5); RDW Standard Deviation 47.9 fL (36.4-46.3); Red Blood Count 3.83 M/uL (4.20-5.40); White Blood Count 8.41 K/ul (4.8-10.8)
[2022-07-12] MEDS: HEPARIN SOD 5,000 UNIT/0.5 ML VIAL SQ SCH ×3 (05:54→21:04)
[2022-07-12] MEDS ORDERED: ALBUMIN 25% 100 mL 25 GM/100 ML VIAL IV ONE (06:00)
--- NOTE | 2022-07-12 08:37 | Consultation ---
Date of Consultation July 12, 2022 Assessment & Plan (1) Sacral insufficiency fracture: Patient has bilateral sacral insufficiency fractures. This is most likely the source of her pain. L1 compression deformity is chronic. This is also visualized on the [address] Treatment is conservative. Ambulate ad chris. Will need the assistance of a walker due to pain. Continue with pain control. Will sign off. Please do not hesitate to contact us if you have any further questions History of Present Illness Reason for Consultation: Sacral fracture Attending Physician: Char Gandara MD History of Present Illness 76-year-old female with metastatic breast CA who presents with mild lower back pain that is diffuse. She has an L1 compression fracture dating back to CT scan in 2019. No radicular complaints. Allergies Allergy/AdvReac Type Severity Reaction Status Date / Time No Known Allergies Allergy Mild Verified 04/05/19 14:05 Home Medications Medication Instructions Recorded Confirmed Type calcium 1 tab PO DAILY 04/05/19 07/10/22 History carbonate,citrate-magnesium oxide 200 mg calcium-50 mg tablet cholecalciferol (vitamin D3) 50 2,000 units PO BID 04/05/19 07/10/22 History mcg (2,000 unit) tablet (Vitamin D3) magnesium citrate 100 mg tablet 500 mg PO DAILY 04/05/19 07/10/22 History multivitamin 1 tab PO DAILY 04/05/19 07/10/22 History polyethylene glycol 3350 17 gram 17 gm PO DAILY 04/05/19 07/10/22 History oral powder packet (Miralax) risedronate 35 mg tablet 35 mg PO WK 04/05/19 07/10/22 History vitamin B complex (B 2 tab PO DAILY 04/05/19 07/10/22 History Complex-Vitamin B12 tablet) apixaban 5 mg tablet (Eliquis) 5 mg PO BID 07/10/22 07/10/22 History sennosides 8.6 mg tablet (senna) 8.6 mg PO HS 07/10/22 07/10/22 History Patient History Medical History (Updated 07/12/22 @ 14:07 by Abhi Marie MD) Acute encephalopathy Arthritis Bilateral pleural effusion Declining performance status Diverticulitis Goals of care, counseling/discussion Left humeral fracture Lumbar compression fracture L1 Osteoporosis Scoliosis Surgical History History of tonsillectomy Social History Smoking Status: Never smoker Second Hand Exposure: No; Do You Dip or Chew Tobacco: No; Tobacco Cessation Education Requested by Patient: No Hx Alcohol Use: No Hx Substance Use: No Preferred Language: Cymro Communication Ability: Effective Visual Impairment: Limited Hearing Ability: Use of Hearing Aid Plate Drying Machine 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 Required: Yes Beliefs That Will Affect Care: None marital status: Current Living Situation: Spouse current occupational status: retired Other Information That Helps Us Care for You: No Feels Safe at Home: Yes Safety Concerns: Feels Safe At This Time Assistive Devices: Cane Review of Systems Review of Systems: All systems reviewed & are unremarkable except as noted in HPI & below Physical Exam Physical Exam: Alert and oriented but uncomfortable Tender over the bilateral sciatic notch region Strength intact bilateral lower extremities Constitutional: WD/WN, vitals as above Eyes: normal visual herman by confrontation ENMT: external ear and nose normal, oropharynx normal Neck: normal visual inspection Respiratory: normal respiratory effort Cardiovascular: Extremities: normal capillary refill Gastrointestinal (Abdomen): Inspection/Auscultation: abdomen normal to inspection Musculoskeletal: Spine: + sacral tenderness Skin: normal turgor Neurologic: normal touch/pain/proprioception and moves all extremities Psychiatric: A+Ox3, euthymic affect Results & Data Vital Signs (Past 12 Hours) Vital Signs Temp Pulse Pulse Resp BP Pulse Ox O2 Del Method 07/12/22 08:01 36.5 C 100 H 16 119/78 95 Nasal Cannula 07/12/22 04:00 36.3 C L 95 H 17 98/69 L 96 Room Air 07/11/22 23:59 102 H 07/11/22 21:57 35.6 C L 101 H 17 91/67 L 93 Room Air O2 Flow Rate 07/12/22 08:01 2 07/12/22 04:00 07/11/22 23:59 07/11/22 21:57 Diagnostic Findings [facility], [place] [phone] CT Scan Report Patient:VALENTIN COLES Admit Date:07/10/22 MR#:[id number] Address1:[address] [place] [address] Acct ID:[id number] Address2: Date:1945 [facility] Zip:[place] [address] Age:76 Location:ED Sex:F Room/Bed: Att Phy: Diagnosis:Confusion, SOB, General Pain Mary Phy:Alejandra Venegas MD Service Date:07/10/22 [facility] Phy: Interpreting Phy:Sony Hunter MDAdmit Phy: Ordering Phy:Tali Lora PA-C cc: ~ LUMBAR SPINE CT CT DOSE: 1065.30 mGy.cm HISTORY: low back pain TECHNIQUE: Multiaxial CT images of the lumbar spine were performed and reformatted in the sagittal and coronal plane following the use of intravenous contrast. A dose lowering technique was utilized adhering to the principles of ALARA. COMPARISON: Lumbar spine CT 03/06/2019. FINDINGS: There is a moderate to severe compression deformity at L1 which has progressed in the interval. This demonstrates up to 75% loss of height anteriorly. There is 3 mm of retropulsion of the posterior superior corner resulting in mild central canal narrowing at this level. This favors a chronic fracture. No significant paravertebral edema. No additional fractures within the lumbar spine. Moderate facet degenerative changes throughout the lumbar spine. There is a fracture involving the right sacral wing which also appears subacute. This may represent an insufficiency fracture. This likely involves the S3 vertebral body. Subtle sclerosis within the left sacral wing may represent an additional insufficiency fracture. Bilateral pleural effusions are better appreciated on the same day chest CT. Presacral edema and body wall edema is also noted. IMPRESSION: 1. A moderate to severe superior endplate compression fracture at L1 which is likely chronic. 2. No definite acute fractures within the lumbar spine. 3. Sacral fractures as described above which favor insufficiency fractures. 4. Bilateral pleural effusions. ACT 112: Negative or not required by law. Electronically signed by: Sony Hunter M.D. 07/10/2022 10:33 AM Dictated:07/10/22 1027 Transcribed: 07/10/22 1027
--- NOTE | 2022-07-12 10:15 | Nephrology Progress Note ---
Date of Service July 12, 2022 Assessment & Plan (1) Hyponatremia: Plan: Hyponatremia is likely multifactorial including cancer and poor p.o. intake. Sodium today 123. Serum osmolality of 276. -Patient is n.p.o. now. It will be difficult to maintain her sodium without oral intake -Monitor sodium daily (2) RUSS (acute kidney injury): Plan: Acute kidney injury: Likely due to metastatic cancer. Patient has hyperkalemia and metabolic acidosis. She also has edema. She has bilateral pleural ef fusions. -Monitor potassium daily. We will give Lokelma 10 g twice daily if potassium is above 5.5. -Palliative medicine have been consulted. Hospice care is recommended Admission and Anticipated Discharge Date Admission Date: July 10, 2022 Subjective Seen for hyponatremia and acute kidney injury. Patient is more confused today and unable to give history. She is also n.p.o. Review of Systems Review of Systems: Unable to obtain due to altered mental status Physical Exam Physical Exam: General exam: Confused pulling on things, HEENT: Pupils are equal and reactive to light Neck: No JVD, neck is supple trachea is midline Respiratory system: Clear breath sounds bilaterally. Right breast peau d'orange Gastrointestinal: Abdomen is soft, non distended, non tender, bowel sounds are present CVS: Regular rate and rhythm. No murmurs, rubs or gallops Musculoskeletal: No joint or muscle tenderness Extremities: Non tender, 2+ edema, peripheral pulses are present Neuro: Disoriented, no tremors, no focal neurological deficits Skin: No rashes Results & Data Vital Signs (Past 12 Hours) Vital Signs Temp Pulse Pulse Resp BP Pulse Ox O2 Del Method 07/12/22 08:01 36.5 C 100 H 16 119/78 95 Nasal Cannula 07/12/22 04:00 36.3 C L 95 H 17 98/69 L 96 Room Air 07/11/22 23:59 102 H O2 Flow Rate 07/12/22 08:01 2 07/12/22 04:00 07/11/22 23:59 Laboratory Results 07/12/22 04:14 07/11/22 07/12/22 07/12/22 09:45 04:14 04:14 WBC 8.41 RBC 3.83 L MCV 88.5 MCH 30.0 MCHC 33.9 RDW Std Deviation 47.9 H RDW Coeff of Talha 14.9 H Plt Count 284 MPV 10.2 Phosphorus 4.2 4.4 Albumin 3.0 L 3.7
--- NOTE | 2022-07-12 14:14 | Pulmonology Progress Note ---
Date of Service July 12, 2022 Assessment & Plan (1) Bilateral pleural effusion: Plan: Patient is currently saturating in the 90s on room air/low-flow oxygen. She denies any significant dyspnea at rest. She is in severe pain and positioning for thoracentesis would be quite difficult. Additionally, I would also prefer that Eliquis washout of her system over the course of the next 48 to 72 hours prior to attempting a thoracentesis. I had a lengthy discussion with the patient's at bedside. Dr. Villanueva was also present during the discussion. We discussed her CODE STATUS and overall wishes. The patient was unable to fully engage in the conversation given severe lethargy. The patient's notes that she would likely not want to be put through aggressive measures in the event of a terminal condition. He has significant concerns with respect to their financial issues and transference of legal documents and financial documents. I reiterated to him that the goal of this discussion is to discuss her medical care moving forward and not to discuss legal issues. I told him that our role as physicians is to provide her the best medical care that we can and to ensure that we are following her wishes. I indicated to him that he is an advocate for her care and essentially her surrogate decision maker as he likely knows her best given that they have been together for over 50 years. He indicated that he would like for her to remain a full code in the event of a cardiac or respiratory arrest and that this would represent her wishes as well until the financial and legal issues are figured out. He is willing to reengage a discussion tomorrow regarding her CODE STATUS and goals of care once more members of the team are available such as a palliative care team. (2) Declining performance status: (3) Acute encephalopathy: (4) Goals of care, counseling/discussion: Admission and Anticipated Discharge Date Admission Date: July 10, 2022 Subjective Patient is essentially unchanged yesterday. Mental status appears slightly worse. She answers simple yes or no questions. She notes that she is thirsty. Has minutes available at bedside. Review of Systems Review of Systems: Unobtainable due to cognitive status Physical Exam Physical Exam: Constitutional: Frail and elderly appearing female in mild distress. Eyes: Pupils are equal round and reactive to light. Conjunctivae are normal. Anicteric sclera. Ears nose, mouth and throat: Mallampati class 2. Normal posterior oropharynx. Uvula is midline. Neck: Trachea is midline. Visual inspection is normal. Respiratory: Diminished bilaterally. Mild tachypnea. Cardiovascular: Regular rate and rhythm. No murmurs. No edema. Gastrointestinal: Normal bowel sounds, soft, nontender and nondistended. No hepatosplenomegaly noted. Musculoskeletal: No cyanosis. Patient is able to move all extremities. Strength is 5 out of 5 in the upper and lower extremities. Skin: Thickening noted on the skin of the right breast. Neurologic: Able to answer simple yes or no questions. Follows simple commands. Psychiatric: Patient is very lethargic. Peers anxious. Results & Data Results & Data Vital Signs (Past 12 Hours) Vital Signs Temp Pulse Resp BP Pulse Ox O2 Del Method O2 Flow Rate 07/12/22 11:19 Nasal Cannula 2 07/12/22 08:01 36.5 C 100 H 16 119/78 95 Nasal Cannula 2 07/12/22 04:00 36.3 C L 95 H 17 98/69 L 96 Room Air PG Care Time/CCT Total # of Minutes Spent Total Time Spent with Patient: Total time spent is greater than 50% in coordination of care (as documented) at patient's floor/unit and/or counseling patient: Coding Level of Care Code 48895 SUB INP/OBS CARE 3/50MIN Diagnoses Bilateral pleural effusion J90 Declining performance status R53.81 Acute encephalopathy G93.40 Goals of care, counseling/discussion Z71.89
[2022-07-12] MEDS: HYDROmorphone INJ 0.5 MG/0.5 ML SYR IV PRN ×2 (14:54→21:04)
--- NOTE | 2022-07-12 15:58 | Hospitalist Progress Note ---
Date of Service July 12, 2022 Assessment & Plan (1) Cancer associated pain: Plan: chronic L1 compression fracture and sacral insufficiency fractures present on Lumbar CT. Has been getting fentanyl patch Dilaudid 0.25 mg every 6 4 hourly as needed for additional pain control She has been screaming with pain and may require more pain medications (2) Breast cancer metastasized to multiple sites: Plan: severe pain and malnutrition present 2/2 progressed metastatic breast cancer. There is no pathology yet to determine diagnosis and diagnosis presumptive based on clinical exam and imaging. Will plan to consult radiation oncology to help with cancer related pain in her back, but this won't happen until wednesday. Intermittent confusion reported today by nurse, so would consider brain MRI with contrast, however, she has RUSS and cannot tolerate lying flat. Add fentanyl patch 25mcg TD now. Give dilaudid 0.5mg IV now. Cont with oxycodone but change to liquid for easier intake when needed. Consult rad onc Dilaudid dose has been changed to 0.25 mg every 4 hourly Discussed with in presence of the pulmonary medicine No DNR as of yet (3) Hyponatremia: Plan: Multifactorial. Plan per nephrology includes fluid restriction. Cont aggressive pain and nausea control. Encourage PO intake once she is more comfortable. Appreciate speech therapy evaluation and recommendation Remains very weak and lethargic to have any food (4) RUSS (acute kidney injury): Plan: plan per nephrology, bmp in am/. (5) Generalized weakness: (6) Pleural effusion: Plan: presumed metastatic pleural effusion, no thoracentesis at this time per pulmonary while she is breathing well on room air. Will cont to monitor and consider this is breathing worsens. No thoracentesis as of yet (7) COVID-19: Plan: Isolation, no specific treatments needed. Does not require any additional treatment Has been saturating normally on 2 L of nasal cannula (8) Malnutrition: Plan: [place] supplements TID per nutrition who saw her today (9) UTI (urinary tract infection): Plan: Urine culture has been (10) Pneumonia: Plan: Cont cefepime for pna and UTI. apixaban Full Code Dispo-uncertain at this time. Palliative consulted for hospice consideration. reports that diagnosis really was just discussed this week for the first time although she has been having issues for months. Admission and Anticipated Discharge Date Admission Date: July 10, 2022 Subjective 07/12/2022 The patient was seen and examined in medical telemetry unit She has been in pain which is not controlled with fentanyl patch She is minimally responsive but has been screaming with pain at the back No fever and or chills and no shortness of breath Review of Systems Review of Systems: Unobtainable due to cognitive status Physical Exam Physical Exam: Lying in bed with acute distress secondary to ongoing back pain Constitutional: + ill appearing and + thin Eyes: PERRL, conjunctivae normal, anicteric sclerae ENMT: external ear and nose normal, oropharynx normal Neck: trachea midline, no thyromegaly Respiratory: no respiratory distress Auscultation: + diminished lung sounds (Bilaterally more on the left than the right) Cardiovascular: Rate/Rhythm: regular rate and regular rhythm; not tachycardic Heart Sounds: normal S1, normal S2 and + murmur Extremities: + edema (Trace edema bilaterally) Gastrointestinal (Abdomen): Inspection/Auscultation: normal bowel sounds; abdomen not distended Neurologic: Alert and awake. Minimally conversive. Minimal movements of the extremities. Extremely weak and lethargic. Lymphatic: no cervical or axillary lymphadenopathy Results & Data Results & Data Vital Signs (Past 12 Hours) Vital Signs Temp Pulse Pulse Resp BP Pulse Ox O2 Del Method 07/12/22 14:12 91 H 07/12/22 07:15 92 H 07/12/22 11:19 Nasal Cannula 07/12/22 08:01 36.5 C 100 H 16 119/78 95 Nasal Cannula 07/12/22 04:00 36.3 C L 95 H 17 98/69 L 96 Room Air O2 Flow Rate 07/12/22 14:12 07/12/22 07:15 07/12/22 11:19 2 07/12/22 08:01 2 07/12/22 04:00 Laboratory Results Short CBC 07/12/22 Range/Units 04:14 WBC 8.41 (4.8-10.8) K/ul Hgb 11.5 L (12.0-16.0) g/dl Hct 33.9 L (37.0-47.0) % Plt Count 284 (130-400) K/uL BMP 07/11/22 07/12/22 23:54 04:14 Sodium 120 L 123 L Potassium 5.3 H 4.9 Chloride 94 L 93 L Carbon Dioxide 18 L 19 L BUN 58 H 60 H Creatinine 1.80 H 2.04 H Glucose 132 H 122 H Calcium 9.2 9.9 Liver Function 07/12/22 Range/Units 04:14 Albumin 3.7 (3.4-5.0) gm/dl Medications Administered Current Inpatient Medications Acetaminophen (Acetaminophen 325 Mg Tab) 650 mg PO Q6H PRN PRN Reason: Mild Pain (Scale 1, 2, 3) Stop: 08/09/22 15:44 Apixaban (Apixaban 5 Mg Tablet) 5 mg PO BID [facility] Stop: 08/09/22 20:59 Last Admin: 07/11/22 22:32 Dose: Not Given Fentanyl (Fentanyl 25 Mcg/Hr Tdsy) 25 mcg TD Q3D [facility] Stop: 07/25/22 18:59 Last Admin: 07/11/22 19:57 Dose: 25 mcg Heparin Sodium (Porcine) (Heparin Sod 5,000 Unit/0.5 Ml Vial) 5,000 units SQ Q8 [facility] Stop: 08/11/22 05:59 Last Admin: 07/12/22 15:01 Dose: 5,000 units Hydromorphone HCl (Hydromorphone Inj 0.5 Mg/0.5 Ml Syr) 0.25 mg IV Q4H PRN PRN Reason: severe pain 6+ Stop: 07/25/22 18:20 Last Admin: 07/12/22 14:54 Dose: 0.25 mg Cefepime HCl 1,000 mg/ Syringe 10 mls @ 5 mls/min IV Q12H [facility]; Protocol Stop: 07/13/22 00:00 Last Admin: 07/12/22 12:05 Dose: 5 mls/min Acetaminophen (Ofirmev) 1,000 mg in 100 mls @ 400 mls/hr IV Q8H PRN PRN Reason: fever/pain Stop: 07/14/22 23:33 Last Infusion: 07/12/22 11:24 Dose: Infused Miscellaneous (Check Fentanyl Patch Placement) 1 each N/A QS [facility] Stop: 08/11/22 00:00 Last Admin: 07/12/22 15:03 Dose: 1 each Miscellaneous (Fentanyl Patch Remove & Waste) 1 each N/A Q3D [facility] Stop: 08/13/22 18:59 Oxycodone HCl (Oxycodone Hcl Soln 5 Mg/5 Ml Udc) 5 mg PO Q6H PRN PRN Reason: severe pain 6+ Stop: 07/25/22 18:20 Last Admin: 07/12/22 11:52 Dose: 5 mg (8) Malnutrition Malnutrition type: protein-calorie malnutrition Protein-calorie malnutrition severity: severe Qualified Code(s): E43 - Unspecified severe protein-calorie malnutrition (9) UTI (urinary tract infection) Hematuria presence: without hematuria Urinary tract infection type: acute cystitis Qualified Code(s): N30.00 - Acute cystitis without hematuria
[2022-07-13] MEDS: CHECK fentaNYL PATCH PLACEMENT SCH ×3 (00:03→15:11)
[2022-07-13] MEDS: HYDROmorphone INJ 0.5 MG/0.5 ML SYR IV PRN ×2 (01:29→22:11)
[2022-07-13] MEDS: HEPARIN SOD 5,000 UNIT/0.5 ML VIAL SQ SCH ×3 (06:11→22:05)
[2022-07-13 08:42] LABS: Basophils # (auto) 0.03 K/uL (0-0.2); Basophils % (auto) 0.4 %; Hematocrit (blood only) 33.9 % (37.0-47.0); Hemoglobin 11.3 g/dl (12.0-16.0); Immature Granulocytes # (auto) 0.11 K/uL (0.01-0.20); Immature Granulocytes % (auto) 1.3 %; Lymphocytes # (auto) 0.49 K/uL (1.2-3.4); Mean Corpuscular Hemoglobin 29.6 pg (25.0-34.0); Mean Corpuscular Hgb Conc 33.3 g/dL (32.0-36.0); Mean Corpuscular Volume 88.7 fL (80.0-100.0); Monocytes # (auto) 0.64 K/uL (0.11-0.59); Monocytes % (auto) 7.8 %; Neutrophils # (auto) 6.94 K/uL (1.40-6.50); Neutrophils % (auto) 84.5 %; Platelet Count 191 K/uL (130-400); RDW Coefficient of Variation 15.1 % (11.5-14.5); RDW Standard Deviation 49.2 fL (36.4-46.3); Red Blood Count 3.82 M/uL (4.20-5.40); White Blood Count 8.21 K/ul (4.8-10.8)
[2022-07-13 09:08] LABS: Albumin Level 3.4 gm/dl (3.4-5.0); Bilirubin,Total 0.8 mg/dl (0.2-1.0); Calcium 10.3 mg/dl (8.6-10.3); Magnesium 2.8 mg/dl (1.7-2.4); Potassium 5.3 mmol/L (3.5-5.1)
[2022-07-13 09:14] LABS: Albumin Globulin Ratio 1.6 (0.9-2); BUN Creatinine Ratio 27.2 (10-20); Creatinine Clr Calc Pharmacy 15.6 ml/min; Est GFR (African American) 21.2 ml/min; Est GFR (Non-African American) 18.3 ml/min; Globulin 2.1 gm/dl (2.5-4.0); Phosphorus 4.6 mg/dl (2.5-4.9); Total Protein 5.5 gm/dl (6.0-8.3)
--- NOTE | 2022-07-13 09:19 | Nephrology Progress Note ---
Date of Service July 13, 2022 Assessment & Plan Admission and Anticipated Discharge Date Admission Date: July 10, 2022 Subjective Assessment & Plan (1) Hyponatremia: Plan: Hyponatremia is likely multifactorial including cancer and poor p.o. intake. Sodium today 123. Serum osmolality of 276. -Patient is n.p.o. now. It will be difficult to maintain her sodium without oral intake -Monitor sodium daily (2) RUSS (acute kidney injury): Plan: Acute kidney injury: Likely due to metastatic cancer. Patient has hyperkalemia and metabolic acidosis. She also has lot of edema. She has bilateral pleural effusions. -Monitor potassium daily. We will give Lokelma 10 g twice daily if potassium is above 5.5. -Palliative medicine have been consulted. Difficult Combination of NPO, ARF, Low na+ edema and Pl effusion and ascites ( but in the setting of malignancy). Will try NS at 75/hr with lasix 40 iv bid and also 25% albumin bid x 4 doses--to see if we can mobilize excess fluid and get some diuresis. will revisit this after doing this for 24 hrs at least. But it seems she will benefit from being hospice care at this point. Subjective Seen for hyponatremia and acute kidney injury. Creeat is rising and na unchanged. Patient is more confused today and unable to give history. did not even open her eyes She is also n.p.o. Review of Systems Review of Systems: Unable to obtain due to altered mental status Physical Exam Physical Exam: General exam: Confused pulling on things, HEENT: Pupils are equal and reactive to light Neck: No JVD, neck is supple trachea is midline Respiratory system: Clear breath sounds bilaterally. Right breast peau d'orange Gastrointestinal: Abdomen is soft, non distended, non tender, bowel sounds are present CVS: Regular rate and rhythm. No murmurs, rubs or gallops Musculoskeletal: No joint or muscle tenderness Extremities: Non tender, 2+ edema, peripheral pulses are present Neuro: Disoriented, no tremors, no focal neurological deficits Skin: No rashes Results & Data Vital Signs (Past 12 Hours) Vital Signs Temp Pulse Pulse Resp BP BP Pulse Ox 07/13/22 09:06 36.5 C 95 H 16 105/70 99 07/13/22 06:04 94 H 07/13/22 05:49 36.4 C L 96 H 17 105/72 98 07/13/22 04:00 36.4 C L 96 H 19 103/70 95 07/12/22 23:31 92 H 07/12/22 21:54 36.5 C 99 H 18 115/73 O2 Del Method O2 Flow Rate 07/13/22 09:06 Nasal Cannula 1 07/13/22 06:04 07/13/22 05:49 Nasal Cannula 2 07/13/22 04:00 Nasal Cannula 2 07/12/22 23:31 07/12/22 21:54 Nasal Cannula 2
[2022-07-13] MEDS: SODIUM CHLORIDE 0.9% 1000ML 1,000 ML IV SCH (09:50)
[2022-07-13] MEDS: ALBUMIN 25% 100 mL 25 GM/100 ML VIAL IV SCH ×2 (09:50→22:05)
[2022-07-13] MEDS: FUROSEMIDE 40 MG/4 ML VIAL IV SCH ×2 (09:56→16:02)
--- NOTE | 2022-07-13 11:51 | Palliative Care Consultation ---
Date of Consultation July 13, 2022 Assessment & Plan (1) Palliative care by specialist: (2) Discussion about advance care planning held with family member: Patient is not decisional. She is unable to participate meaningfully in any discussions about goals of care or advanced care planning. Family meeting is recommended when primary team and care management can join. We will defer scheduling of meeting to primary team and care management to accommodate their schedules. (3) Acute encephalopathy: (4) Sacral insufficiency fracture: (5) Malnutrition: Malnutrition type: protein-calorie malnutrition Protein-calorie malnutrition severity: severe Qualified Code(s): E43 - Unspecified severe protein-calorie malnutrition (6) Cancer associated pain: (7) Breast cancer metastasized to multiple sites: (8) Declining performance status: (9) Bilateral pleural effusion: (10) Generalized weakness: (11) Breast mass, right: Breast mass location: unspecified quadrant Qualified Code(s): N63.10 - Unspecified lump in the right breast, unspecified quadrant Plan Patient is not decisional. Family meeting is recommended when primary team and care management can join to discuss disposition planning options and steps moving forward for discharge. Thank you for allowing us to participate in the ongoing care of this patient. Please don't hesitate to call or page with any additional concerns. Dr. Nery Marquez DNP Director, Palliative Care History of Present Illness Reason for Consultation: "goals of care" Attending Physician: Char Gandara MD History of Present Illness Per ED note 07/10/22: "This 76-year-old female patient presents to the emergency department via EMS with her for evaluation of confusion, right sided chest discomfort, shortness of breath, back pain, weakness, and general pain. She states that she has been feeling sick at home with increasing back pain over the past 2 weeks. About 1.5 years ago she fractured her lower spine per patient. She then fell down a flight of stairs in [place], [place] about 4 months ago and fractured her right shoulder, right clavicle, and right hip along with a pelvic fracture per her . She was admitted to the hospital in [facility] and then was sent to a rehab facility. They just recently returned home to [place]. She has been diagnosed with early stages of dementia, but has not seen a local doctor since coming back to [place] because she has refused per her . Continues to complain of lower back pain and pain into her legs since that time. Has not been able to walk well since the fall and she is not able to get around a lot and her has to carry her and move her in bed. Her states that she has been almost completely immobile for the past 2 weeks. Has also had increased swelling in her bilateral legs for the past 4 weeks. She saw cardiology and per patient they did not think the leg swelling was a heart problem. Has also had redness and hardness to the right breast for an unknown amount of time per patient, but the patient's did not know about this. The patient states that she had imaging of her breast 1 year ago that did not reveal any concerning causes, but unknown if this is correct. She is on Eliquis for Afib. She has been waking up every 2 hrs needing to drink water and get placed in a new position per her . The patient's is her full- time caregiver, and he does not feel like he can take care of her at home at this time. The patient's is Mohit - [phone] and would like to be contacted about all results prior to speaking with his ." + effusion - CT chest showed Large right and moderate left pleural effusions, likely malignant, d/t ?breast cancer Hyponatremia/multifactorial d/t cancer and poor p.o. intake. +RUSS, +metab acidosis Nephrology note this keeg notes: "Difficult Combination of NPO, ARF, Low na+ edema and Pl effusion and ascites ( but in the setting of malignancy). Will try NS at 75/hr with lasix 40 iv bid and also 25% albumin bid x 4 doses--to see if we can mobilize excess fluid and get some diuresis. will revisit this after doing this for 24 hrs at least. But it seems she will benefit from being hospice care at this point." Chart review indicates repeatedly: " requests no discussion with patient regarding her cancer or pulmonology issues." At the time of my visit, patient was resting in bed. There is no family present. She was minimally interactive. Her eyes were open to voice but she did not answer any questions or follow commands for me. Allergies Allergy/AdvReac Type Severity Reaction Status Date / Time No Known Allergies Allergy Mild Verified 04/05/19 14:05 Home Medications Medication Instructions Recorded Confirmed Type calcium 1 tab PO DAILY 04/05/19 07/10/22 History carbonate,citrate-magnesium oxide 200 mg calcium-50 mg tablet cholecalciferol (vitamin D3) 50 2,000 units PO BID 04/05/19 07/10/22 History mcg (2,000 unit) tablet (Vitamin D3) magnesium citrate 100 mg tablet 500 mg PO DAILY 04/05/19 07/10/22 History multivitamin 1 tab PO DAILY 04/05/19 07/10/22 History polyethylene glycol 3350 17 gram 17 gm PO DAILY 04/05/19 07/10/22 History oral powder packet (Miralax) risedronate 35 mg tablet 35 mg PO WK 04/05/19 07/10/22 History vitamin B complex (B 2 tab PO DAILY 04/05/19 07/10/22 History Complex-Vitamin B12 tablet) apixaban 5 mg tablet (Eliquis) 5 mg PO BID 07/10/22 07/10/22 History sennosides 8.6 mg tablet (senna) 8.6 mg PO HS 07/10/22 07/10/22 History Patient History Medical History (Updated 07/13/22 @ 11:51 by Nery Marquez DNP) Acute encephalopathy Arthritis Bilateral pleural effusion Declining performance status Discussion about advance care planning held with family member Diverticulitis Goals of care, counseling/discussion Left humeral fracture Lumbar compression fracture L1 Osteoporosis Palliative care by specialist Scoliosis Surgical History History of tonsillectomy Social History Smoking Status: Never smoker Second Hand Exposure: No; Do You Dip or Chew Tobacco: No; Tobacco Cessation Education Requested by Patient: No Hx Alcohol Use: No Hx Substance Use: No Preferred Language: Persian Communication Ability: Effective Visual Impairment: Limited Hearing Ability: Use of Hearing Aid Ear Flap Binder Required: Yes Beliefs That Will Affect Care: None marital status: Current Living Situation: Spouse current occupational status: retired Other Information That Helps Us Care for You: No Feels Safe at Home: Yes Safety Concerns: Feels Safe At This Time Assistive Devices: Cane Review of Systems Review of Systems: Unobtainable due to cognitive status Physical Exam Physical Exam: Patient is largely nonverbal, eyes open weakly to voice, she appears lethargic. She is unable to provide any HPI. She is chronically ill-appearing. She is thin. She appears to be uncomfortable. There are some bitemporal wasting noted. Pupils are equal round and reactive to light. Neck is supple, there is no obvious stridor. Her lung sounds are diminished bilaterally. Heart tones are S1-S2, regular rate and rhythm, no JVD noted. Abdomen is soft but nont sreekanth. Skin is pale but warm to touch. Results & Data Vital Signs (Past 12 Hours) Vital Signs Temp Pulse Pulse Resp BP BP Pulse Ox 07/13/22 09:06 36.5 C 95 H 16 105/70 99 07/13/22 06:04 94 H 07/13/22 05:49 36.4 C L 96 H 17 105/72 98 07/13/22 04:00 36.4 C L 96 H 19 103/70 95 O2 Del Method O2 Flow Rate 07/13/22 09:06 Nasal Cannula 1 07/13/22 06:04 07/13/22 05:49 Nasal Cannula 2 07/13/22 04:00 Nasal Cannula 2 Laboratory Results Data reviewed Diagnostic Findings Data reviewed PG Care Time/CCT Total # of Minutes Spent Total Time Spent: 40 Total Time Spent with Patient: Total time spent is greater than 50% in coordination of care (as documented) at patient's floor/unit and/or counseling patient: [place] [address] IN/OBS CONSULT LVL 5,80M Patient Type New History Comprehensive Exam Detailed Medical Decision Making Moderate Complexity Diagnoses Palliative care by specialist Z51.5 Discussion about advance care planning held with family member Z71.0 Acute encephalopathy G93.40 Sacral insufficiency fracture M84.48XA Malnutrition E43 Malnutrition type: protein-calorie malnutrition Protein-calorie malnutrition severity: severe Cancer associated pain G89.3 Breast cancer metastasized to multiple sites C50.919 Declining performance status R53.81 Bilateral pleural effusion J90 Generalized weakness R53.1 Breast mass, right N63.10 Breast mass location: unspecified quadrant
--- NOTE | 2022-07-13 13:27 | Pulmonology Progress Note ---
Date of Service July 13, 2022 Assessment & Plan (1) Bilateral pleural effusion: Plan IMPRESSION: 76-year-old female with multiple fractures and metastatic CA with failure to thrive who presents with large RIGHT-sided pleural effusion who is requiring supplemental oxygen. RECOMMENDATIONS: 1. Pleural effusions - * Patient was evaluated at bedside. The effusion is relatively large. The patient is saturating in the high 90s on 2 L nasal cannula. Nursing staff informs me that they did attempt to take the oxygen off, however the requests that she remains on oxygen. She appears in no distress from a pulmonary standpoint, the patient is a frail and unfortunate appearing individual with multiple other comorbidities that are likely more significant than her effusion at this time. She remains saturating well and likely does not require supplemental oxygen at this point. Given the risks of procedure in the frail and contorted individual, I feel as though thoracentesis poses a greater risk for injury to her rather than to provide significant clinical benefit as she is not requiring significant amounts of oxygen or other therapies at this point. Certainly, if her condition were to change, we would be happy to oblige, however I would agree with engagement of palliative care moving forward in this unfortunate patient. Thank you for allowing us to participate in the care of this patient. Pulmonary medicine will sign off at this time. Admission and Anticipated Discharge Date Admission Date: July 10, 2022 Supervising Physician Co-Signing Physician Notes Patient seen and examined. EMR reviewed. Discussed with off going design printer balloon. Agree with assessment plan as noted by DIMA. Patient is in an obtunded state. Her frail nature would exclude her from any invasive pulmonary procedures at this point in time. Her performance status is so poor that I do not think she is a candidate for any systemic or palliative therapies at this point in time. Would continue to focus on symptom management only. Pulmonary will sign off at this point time. Feel free to contact us with questions or concerns. Subjective Patient was seen and evaluated at bedside. Patient does not contribute to HPI. Family is not present. Review of Systems Review of Systems: Unable to obtain secondary to patient's mental status. Physical Exam Physical Exam: VITAL SIGNS - Vital signs and nursing notes were reviewed. GENERAL - 76-year-old cachectic appearing female. LUNGS -diminished breath sounds on the RIGHT side. No wheezes or rales noted CARDIAC - RRR with S1/S2. No murmur, rubs, or gallops appreciated. Results & Data Results & Data Vital Signs (Past 12 Hours) Vital Signs Temp Pulse Pulse Resp BP BP Pulse Ox 07/13/22 12:09 36.4 C L 102 H 14 111/79 96 07/13/22 09:06 36.5 C 95 H 16 105/70 99 07/13/22 06:04 94 H 07/13/22 05:49 36.4 C L 96 H 17 105/72 98 07/13/22 04:00 36.4 C L 96 H 19 103/70 95 O2 Del Method O2 Flow Rate 07/13/22 12:09 Nasal Cannula 2 07/13/22 09:06 Nasal Cannula 1 07/13/22 06:04 07/13/22 05:49 Nasal Cannula 2 07/13/22 04:00 Nasal Cannula 2 PG Care Time/CCT Total # of Minutes Spent Total Time Spent with Patient: Total time spent is greater than 50% in coordination of care (as documented) at patient's floor/unit and/or counseling patient: Coding Level of Care Code 72638 SUB INP/OBS CARE 2/35MIN Diagnoses Bilateral pleural effusion J90
--- NOTE | 2022-07-13 16:39 | Hospitalist Progress Note ---
Date of Service July 13, 2022 Assessment & Plan (1) Cancer associated pain: Plan: chronic L1 compression fracture and sacral insufficiency fractures present on Lumbar CT. Has been getting fentanyl patch Dilaudid 0.25 mg every 6 4 hourly as needed for additional pain control She has been screaming with pain and may require more pain medications Pain is reasonably controlled with current pain medications (2) Breast cancer metastasized to multiple sites: Plan: severe pain and malnutrition present 2/2 progressed metastatic breast cancer. There is no pathology yet to determine diagnosis and diagnosis presumptive based on clinical exam and imaging. Will plan to consult radiation oncology to help with cancer related pain in her back, but this won't happen until wednesday. Intermittent confusion reported today by nurse, so would consider brain MRI with contrast, however, she has RUSS and cannot tolerate lying flat. Add fentanyl patch 25mcg TD now. Give dilaudid 0.5mg IV now. Cont with oxycodone but change to liquid for easier intake when needed. Consult rad onc Dilaudid dose has been changed to 0.25 mg every 4 hourly Discussed with in presence of the pulmonary medicine Discussed with the and the patient was put in for DNR as per her wish and 's decision (3) Hyponatremia: Plan: Multifactorial. Plan per nephrology includes fluid restriction. Cont aggressive pain and nausea control. Encourage PO intake once she is more comfortable. Appreciate speech therapy evaluation and recommendation Remains very weak and lethargic to have any food Appreciate nephrology's input and recommendation We will monitor PRP (4) RUSS (acute kidney injury): Plan: Plan per nephrology, bmp in am/. (5) Generalized weakness: Plan: Remained extremely weak and lethargic (6) Pleural effusion: Plan: presumed metastatic pleural effusion, no thoracentesis at this time per pulmonary while she is breathing well on room air. Will cont to monitor and consider this is breathing worsens. No thoracentesis as of yet Discussed with the ion exchange operator (7) COVID-19: Plan: Isolation, no specific treatments needed. Does not require any additional treatment Has been saturating normally on 2 L of nasal cannula (8) Malnutrition: Plan: [place] supplements TID per nutrition who saw her today (9) UTI (urinary tract infection): Plan: Urine culture has been Has been negative (10) Pneumonia: Plan: Cont cefepime for pna and UTI. apixaban Full Code Dispo-uncertain at this time. Palliative consulted for hospice consideration. reports that diagnosis really was just discussed this week for the first time although she has been having issues for months. Admission and Anticipated Discharge Date Admission Date: July 10, 2022 Subjective 07/12/2022 The patient was seen and examined in medical telemetry unit She has been in pain which is not controlled with fentanyl patch She is minimally responsive but has been screaming with pain at the back No fever and or chills and no shortness of breath 07/13/2022 The patient was seen and examined in medical telemetry unit She remains extremely weak and lethargic but responding to vocal commands Denies any significant pain today and moving all extremities minimally Not in any shortness of breath at rest Review of Systems Review of Systems: All systems were reviewed and negative except as indicated on subjective above Physical Exam Physical Exam: Lying in bed with acute distress secondary to ongoing back pain Constitutional: + ill appearing and + thin Eyes: PERRL, conjunctivae normal, anicteric sclerae ENMT: external ear and nose normal, oropharynx normal Neck: trachea midline, no thyromegaly Respiratory: no respiratory distress Auscultation: + diminished lung sounds (Bilaterally more on the left than the right) Cardiovascular: Rate/Rhythm: regular rate and regular rhythm; not tachycardic Heart Sounds: normal S1, normal S2 and + murmur Extremities: + edema (Trace edema bilaterally) Gastrointestinal (Abdomen): Inspection/Auscultation: normal bowel sounds; abdomen not distended Musculoskeletal: No acute arthritis involving any joint but complains to have back pain Neurologic: awake Lymphatic: no cervical or axillary lymphadenopathy Results & Data Results & Data Vital Signs (Past 12 Hours) Vital Signs Temp Pulse Pulse Resp BP BP Pulse Ox 07/13/22 16:01 93 H 07/13/22 16:04 92 H 116/61 07/13/22 14:29 36.4 C L 96 H 14 97/74 L 94 07/13/22 12:09 36.4 C L 102 H 14 111/79 96 07/13/22 09:06 36.5 C 95 H 16 105/70 99 07/13/22 06:04 94 H 07/13/22 05:49 36.4 C L 96 H 17 105/72 98 O2 Del Method O2 Flow Rate 07/13/22 16:01 07/13/22 16:04 04/24/23 14:29 Nasal Cannula 07/13/22 12:09 Nasal Cannula 2 07/13/22 09:06 Nasal Cannula 1 07/13/22 06:04 07/13/22 05:49 Nasal Cannula 2 Laboratory Results Short CBC 07/13/22 Range/Units 08:28 WBC 8.21 (4.8-10.8) K/ul Hgb 11.3 L (12.0-16.0) g/dl Hct 33.9 L (37.0-47.0) % Plt Count 191 (130-400) K/uL BMP 07/13/22 08:28 Sodium 123 L Potassium 5.3 H Chloride 94 L Carbon Dioxide 18 L BUN 68 H Creatinine 2.50 H D Glucose 85 Calcium 10.3 Liver Function 07/13/22 Range/Units 08:28 Total Bilirubin 0.8 (0.2-1.0) mg/dl AST 18 (13-39) U/L ALT 7 (7-52) U/L Alkaline Phosphatase 58 (34-104) U/L Albumin 3.4 (3.4-5.0) gm/dl Medications Administered Current Inpatient Medications Acetaminophen (Acetaminophen 325 Mg Tab) 650 mg PO Q6H PRN PRN Reason: Mild Pain (Scale 1, 2, 3) Stop: 08/09/22 15:44 Apixaban (Apixaban 5 Mg Tablet) 5 mg PO BID [facility] Stop: 08/09/22 20:59 Last Admin: 07/11/22 22:32 Dose: Not Given Fentanyl (Fentanyl 25 Mcg/Hr Tdsy) 25 mcg TD Q3D [facility]UA[facility]IN Stop: 07/25/22 18:59 Last Admin: 07/11/22 19:57 Dose: 25 mcg Furosemide (Furosemide 40 Mg/4 Ml Vial) 40 mg IV [id number] [facility] Stop: 07/14/22 09:01 Last Admin: 07/13/22 16:02 Dose: 40 mg Heparin Sodium (Porcine) (Heparin Sod 5,000 Unit/0.5 Ml Vial) 5,000 units SQ Q8 [facility]QUIN Stop: 08/11/22 05:59 Last Admin: 07/13/22 15:11 Dose: 5,000 units Hydromorphone HCl (Hydromorphone Inj 0.5 Mg/0.5 Ml Syr) 0.25 mg IV Q4H PRN PRN Reason: severe pain 6+ Stop: 07/25/22 18:20 Last Admin: 07/13/22 01:29 Dose: 0.25 mg Acetaminophen (Ofirmev) 1,000 mg in 100 mls @ 400 mls/hr IV Q8H PRN PRN Reason: fever/pain Stop: 07/14/22 23:33 Last Infusion: 07/12/22 11:24 Dose: Infused Sodium Chloride (Nss 1000ml) 1,000 mls @ 80 mls/hr IV .[id number] [facility] Stop: 08/12/22 09:29 Last Admin: 07/13/22 09:50 Dose: 80 mls/hr Albumin Human (Albumin 25% 100 Ml) 25 gm in 100 mls @ 50 mls/hr IV Q12H [facility] Stop: 07/14/22 11:59 Last Infusion: 07/13/22 12:17 Dose: Infused Miscellaneous (Check Fentanyl Patch Placement) 1 each N/A QS [facility] Stop: 08/11/22 00:00 Last Admin: 07/13/22 15:11 Dose: 1 each Miscellaneous (Fentanyl Patch Remove & Waste) 1 each N/A Q3D [facility] Stop: 08/13/22 18:59 Oxycodone HCl (Oxycodone Hcl Soln 5 Mg/5 Ml Udc) 5 mg PO Q6H PRN PRN Reason: severe pain 6+ Stop: 07/25/22 18:20 Last Admin: 07/12/22 11:52 Dose: 5 mg (8) Malnutrition Malnutrition type: protein-calorie malnutrition Protein-calorie malnutrition severity: severe Qualified Code(s): E43 - Unspecified severe protein-calorie malnutrition (9) UTI (urinary tract infection) Hematuria presence: without hematuria Urinary tract infection type: acute cy stitis Qualified Code(s): N30.00 - Acute cystitis without hematuria
[2022-07-14] MEDS: CHECK fentaNYL PATCH PLACEMENT SCH ×4 (00:24→23:15)
[2022-07-14] MEDS: SODIUM CHLORIDE 0.9% 1000ML 1,000 ML IV SCH ×4 (00:24→23:15)
[2022-07-14] MEDS: HEPARIN SOD 5,000 UNIT/0.5 ML VIAL SQ SCH ×3 (05:39→22:11)
[2022-07-14] MEDS: HYDROmorphone INJ 0.5 MG/0.5 ML SYR IV PRN (05:39)
[2022-07-14 07:34] LABS: Basophils # (auto) 0.01 K/uL (0-0.2); Basophils % (auto) 0.2 %; Hematocrit (blood only) 29.3 % (37.0-47.0); Hemoglobin 10.1 g/dl (12.0-16.0); Immature Granulocytes # (auto) 0.04 K/uL (0.01-0.20); Immature Granulocytes % (auto) 0.6 %; Lymphocytes # (auto) 0.44 K/uL (1.2-3.4); Lymphocytes % (auto) 6.7 %; Mean Corpuscular Hemoglobin 30.2 pg (25.0-34.0); Mean Corpuscular Hgb Conc 34.5 g/dL (32.0-36.0); Mean Corpuscular Volume 87.7 fL (80.0-100.0); Mean Platelet Volume 10.9 fL (9.4-12.4); Monocytes # (auto) 0.39 K/uL (0.11-0.59); Monocytes % (auto) 5.9 %; Neutrophils # (auto) 5.73 K/uL (1.40-6.50); Neutrophils % (auto) 86.6 %; Platelet Count 174 K/uL (130-400); RDW Coefficient of Variation 14.8 % (11.5-14.5); RDW Standard Deviation 47.4 fL (36.4-46.3); Red Blood Count 3.34 M/uL (4.20-5.40); White Blood Count 6.61 K/ul (4.8-10.8)
[2022-07-14 07:50] LABS: BUN Creatinine Ratio 27.2 (10-20); Calcium 9.9 mg/dl (8.6-10.3); Creatinine Clr Calc Pharmacy 15.3 ml/min; Est GFR (African American) 18.8 ml/min; Est GFR (Non-African American) 16.3 ml/min; Potassium 5.3 mmol/L (3.5-5.1)
[2022-07-14] MEDS: FUROSEMIDE 40 MG/4 ML VIAL IV SCH ×3 (09:09→22:09)
[2022-07-14] MEDS: ALBUMIN 25% 100 mL 25 GM/100 ML VIAL IV SCH ×3 (09:20→22:16)
--- NOTE | 2022-07-14 10:27 | Nephrology Progress Note ---
Date of Service July 14, 2022 Assessment & Plan Admission and Anticipated Discharge Date Admission Date: July 10, 2022 Subjective Assessment & Plan (1) Hyponatremia: Plan: Hyponatremia is likely multifactorial including cancer and poor p.o. intake. Sodium today 123. Serum osmolality of 276. -Patient is n.p.o. now. It will be difficult to maintain her sodium without oral intake -Monitor sodium daily (2) RUSS (acute kidney injury): Plan: Acute kidney injury: Likely due to metastatic cancer. Patient has hyperkalemia and metabolic acidosis. She also has lot of edema. She has bilateral pleural effusions. -Monitor potassium daily. We will give Lokelma 10 g twice daily if potassium is above 5.5. -Palliative medicine have been consulted. Difficult Combination of NPO, ARF, Low na+ edema and Pl effusion and ascites ( but in the setting of malignancy). Tried NS, lasix and alb--na went from 123 to 125. will try 2 more doses. To see if we can mobilize excess fluid and get some diuresis. But it seems she will benefit from being hospice care at this point. Subjective Seen for hyponatremia and acute kidney injury. Creat is rising and na+ unchanged. Patient is more confused today and unable to give history. did not even open her eyes She is also n.p.o. Review of Systems Review of Systems: Unable to obtain due to altered mental status Physical Exam Physical Exam: General exam: Confused pulling on things, HEENT: Pupils are equal and reactive to light Neck: No JVD, neck is supple trachea is midline Respiratory system: Clear breath sounds bilaterally. Right breast peau d'orange Gastrointestinal: Abdomen is soft, non distended, non tender, bowel sounds are present CVS: Regular rate and rhythm. No murmurs, rubs or gallops Musculoskeletal: No joint or muscle tenderness Extremities: Non tender, 2+ edema, peripheral pulses are present Neuro: Disoriented, no tremors, no focal neurological deficits Skin: No rashes Results & Data Vital Signs (Past 12 Hours) Vital Signs Temp Pulse Pulse Resp BP Pulse Ox O2 Del Method 07/14/22 06:15 86 07/14/22 07:36 Nasal Cannula 07/14/22 07:25 36.4 C L 88 14 105/71 95 Nasal Cannula 07/14/22 03:10 35.6 C L 85 12 117/74 98 Nasal Cannula 07/13/22 23:59 103 H 07/13/22 23:08 36.4 C L 98 H 12 107/75 98 Nasal Cannula O2 Flow Rate 07/14/22 06:15 07/14/22 07:36 2 07/14/22 07:25 2 07/14/22 03:10 2 07/13/22 23:59 07/13/22 23:08 2
[2022-07-14] MEDS ORDERED: SODIUM CHLORIDE 0.9% 500 ML IV SCH (10:30)
[2022-07-14] MEDS ORDERED: Nursing to Pharmacy Communication SCH (14:30)
--- NOTE | 2022-07-14 17:19 | Hospitalist Progress Note ---
Date of Service July 14, 2022 Assessment & Plan (1) Cancer associated pain: Plan: chronic L1 compression fracture and sacral insufficiency fractures present on Lumbar CT. Has been getting fentanyl patch Dilaudid 0.25 mg every 6 4 hourly as needed for additional pain control She has been screaming with pain and may require more pain medications Pain is reasonably controlled with current pain medications Has been on fentanyl patch of 25 mcg-pain is well controlled Very occasionally she will require intravenous Dilaudid of 0.25 mg Clinically little worse today (2) Breast cancer metastasized to multiple sites: Plan: severe pain and malnutrition present 2/2 progressed metastatic breast cancer. There is no pathology yet to determine diagnosis and diagnosis presumptive based on clinical exam and imaging. Will plan to consult radiation oncology to help with cancer related pain in her back, but this won't happen until wednesday. Intermittent confusion reported today by nurse, so would consider brain MRI with contrast, however, she has RUSS and cannot tolerate lying flat. Add fentanyl patch 25mcg TD now. Give dilaudid 0.5mg IV now. Cont with oxycodone but change to liquid for easier intake when needed. Consult rad onc Dilaudid dose has been changed to 0.25 mg every 4 hourly Discussed with in presence of the pulmonary medicine Discussed with the and the patient was put in for DNR as per her wish and 's decision Discussed with the for possible family meeting with the palliative care doctor (3) Hyponatremia: Plan: Multifactorial. Plan per nephrology includes fluid restriction. Cont aggressive pain and nausea control. Encourage PO intake once she is more comfortable. Appreciate speech therapy evaluation and recommendation Remains very weak and lethargic to have any food Appreciate nephrology's input and recommendation We will monitor PRP-sodium is 125 today but creatinine has gone up to 2.76 (4) RUSS (acute kidney injury): Plan: Plan per nephrology, bmp in am/. Kidney function is worse today (5) Generalized weakness: Plan: Remained extremely weak and lethargic (6) Pleural effusion: Plan: presumed metastatic pleural effusion, no thoracentesis at this time per pulmonary while she is breathing well on room air. Will cont to monitor and consider this is breathing worsens. No thoracentesis as of yet Discussed with the urban redevelopment specialist-continue acute distress or shortness of breath (7) COVID-19: Plan: Isolation, no specific treatments needed. Does not require any additional treatment Has been saturating normally on 2 L of nasal cannula (8) Malnutrition: Plan: [place] supplements TID per nutrition who saw her today (9) UTI (urinary tract infection): Plan: Urine culture has been Has been negative (10) Pneumonia: Plan: Cont cefepime for pna and UTI. No more antibiotic apixaban-being able to take orally. Will give subcu heparin Full Code Dispo-uncertain at this time. Palliative consulted for hospice consideration. reports that diagnosis really was just discussed this week for the first time although she has been having issues for months. Condition remains stable but critical Admission and Anticipated Discharge Date Admission Date: July 10, 2022 Subjective 07/12/2022 The patient was seen and examined in medical telemetry unit She has been in pain which is not controlled with fentanyl patch She is minimally responsive but has been screaming with pain at the back No fever and or chills and no shortness of breath 07/13/2022 The patient was seen and examined in medical telemetry unit She remains extremely weak and lethargic but responding to vocal commands Denies any significant pain today and moving all extremities minimally Not in any shortness of breath at rest 07/14/2022 The patient was seen and examined in medical telemetry unit in presence of the She is less responsive today but not in any acute distress Not been eating or drinking Review of Systems Review of Systems: All systems were reviewed and negative except as indicated on subjective above Physical Exam Physical Exam: Lying in bed obtunded Constitutional: + ill appearing and + thin Eyes: PERRL, conjunctivae normal, anicteric sclerae ENMT: external ear and nose normal, oropharynx normal Neck: trachea midline, no thyromegaly Respiratory: no respiratory distress Auscultation: + diminished lung sounds (Bilaterally more on the left than the right) Cardiovascular: Rate/Rhythm: regular rate and regular rhythm; not tachycardic Heart Sounds: normal S1, normal S2 and + murmur Extremities: + edema (Trace edema bilaterally) Gastrointestinal (Abdomen): Inspection/Auscultation: normal bowel sounds; abdomen not distended Musculoskeletal: No acute arthritis Neurologic: awake (Moves extremities with commands but not being opening eyes) Lymphatic: no cervical or axillary lymphadenopathy Results & Data Results & Data Vital Signs (Past 12 Hours) Vital Signs Temp Pulse Pulse Resp BP Pulse Ox O2 Del Method 07/14/22 14:16 99 H 07/14/22 15:00 36.3 C L 97 H 14 123/77 94 Nasal Cannula 07/14/22 11:54 36.4 C L 93 H 14 116/71 98 Nasal Cannula 07/14/22 06:15 86 07/14/22 07:36 Nasal Cannula 07/14/22 07:25 36.4 C L 88 14 105/71 95 Nasal Cannula O2 Flow Rate 07/14/22 14:16 07/14/22 15:00 07/14/22 11:54 2 07/14/22 06:15 07/14/22 07:36 2 07/14/22 07:25 2 Laboratory Results Short CBC 07/14/22 Range/Units 06:52 WBC 6.61 (4.8-10.8) K/ul Hgb 10.1 L (12.0-16.0) g/dl Hct 29.3 L (37.0-47.0) % Plt Count 174 (130-400) K/uL BMP 07/14/22 06:52 Sodium 125 L Potassium 5.3 H Chloride 96 L Carbon Dioxide 17 L BUN 75 H Creatinine 2.76 H Glucose 83 Calcium 9.9 Medications Administered Current Inpatient Medications Acetaminophen (Acetaminophen 325 Mg Tab) 650 mg PO Q6H PRN PRN Reason: Mild Pain (Scale 1, 2, 3) Stop: 08/09/22 15:44 Apixaban (Apixaban 5 Mg Tablet) 5 mg PO BID [facility] Stop: 08/09/22 20:59 Last Admin: 07/11/22 22:32 Dose: Not Given Fentanyl (Fentanyl 25 Mcg/Hr Tdsy) 25 mcg TD Q3D [facility] Stop: 07/25/22 18:59 Last Admin: 07/11/22 19:57 Dose: 25 mcg Furosemide (Furosemide 40 Mg/4 Ml Vial) 40 mg IV Q12H [facility] Stop: 07/14/22 22:31 Last Admin: 07/14/22 11:46 Dose: 40 mg Heparin Sodium (Porcine) (Heparin Sod 5,000 Unit/0.5 Ml Vial) 5,000 units SQ Q8 [facility] Stop: 08/11/22 05:59 Last Admin: 07/14/22 14:59 Dose: 5,000 units Hydromorphone HCl (Hydromorphone Inj 0.5 Mg/0.5 Ml Syr) 0.25 mg IV Q4H PRN PRN Reason: severe pain 6+ Stop: 07/25/22 18:20 Last Admin: 07/14/22 05:39 Dose: 0.25 mg Acetaminophen (Ofirmev) 1,000 mg in 100 mls @ 400 mls/hr IV Q8H PRN PRN Reason: fever/pain Stop: 07/14/22 23:33 Last Infusion: 07/12/22 11:24 Dose: Infused Sodium Chloride (Nss 1000ml) 1,000 mls @ 80 mls/hr IV .[id number] [facility] Stop: 08/12/22 09:29 Last Admin: 07/14/22 11:53 Dose: 80 mls/hr Albumin Human (Albumin 25% 100 Ml) 25 gm in 100 mls @ 50 mls/hr IV Q12H [facility] Stop: 07/15/22 00:29 Last Infusion: 07/14/22 14:24 Dose: Infused Miscellaneous (Check Fentanyl Patch Placement) 1 each N/A QS [facility] Stop: 08/11/22 00:00 Last Admin: 07/14/22 15:00 Dose: 1 each Miscellaneous (Fentanyl Patch Remove & Waste) 1 each N/A Q3D [facility] Stop: 08/13/22 18:59 Oxycodone HCl (Oxycodone Hcl Soln 5 Mg/5 Ml Udc) 5 mg PO Q6H PRN PRN Reason: severe pain 6+ Stop: 07/25/22 18:20 Last Admin: 07/12/22 11:52 Dose: 5 mg (8) Malnutrition Malnutrition type: protein-calorie malnutrition Protein-calorie malnutrition severity: severe Qualified Code(s): E43 - Unspecified severe protein-calorie malnutrition (9) UTI (urinary tract infection) Hematuria presence: without hematuria Urinary tract infection type: acute cystitis Qualified Code(s): N30.00 - Acute cystitis without hematuria
[2022-07-14] MEDS: fentaNYL 25 MCG/HR TDSY TD SCH (18:19)
[2022-07-14 22:08] LABS: A calco-baum cmplx NotReported Not Detected (NotDetected); Bact fragilis Not Reported Not Detected (NotDetected); C auris Not Reported Not Detected (NotDetected); Calbicans Not Reported Not Detected (NotDetected); Candida glabrata Not Reported Not Detected (NotDetected); Candida krusei Not Reported Not Detected (NotDetected); Cneoformans/gatti Not Reported Not Detected (NotDetected); Cparapsilosis Not Reported Not Detected (NotDetected); Ctropicalis Not Reported Not Detected (NotDetected); E cloacae compx Not Reported Not Detected (NotDetected); Efaecalis Not Reported Not Detected (NotDetected); Efaecium Not Reported Not Detected (NotDetected); Enterobacterales Not Reported Not Detected (NotDetected); Escherichia coli Not Reported Not Detected (NotDetected); H influenzae Not Reported Not Detected (NotDetected); K aerogenes Not Reported Not Detected (NotDetected); Koxytoca Not Reported Not Detected (NotDetected); Kpneumoniae grp Not Reported Not Detected (NotDetected); Lmonocyt Not Reported Not Detected (NotDetected); N meningitidis Not Reported Not Detected (NotDetected); P aeruginosa Not Reported Not Detected (NotDetected); Proteus spp Not Reported Not Detected (NotDetected); Salmonella spp Not Reported Not Detected (NotDetected); Smarcescens Not Reported Not Detected (NotDetected); Staph lugdunensis Not Reported Not Detected (NotDetected); Staph spp. Not Reported Not Detected (NotDetected); Staphaureus Not Reported Not Detected (NotDetected); Staphepi Not Reported Not Detected (NotDetected); Stenmaltophilia Not Reported Not Detected (NotDetected); Strep agal(GrpB) Not Reported Not Detected (NotDetected); Strep pneum Not Reported Not Detected (NotDetected); Strep pyog (GrpA) Not Reported Not Detected (NotDetected); Strep spp Not Reported Not Detected (NotDetected)
[2022-07-15] MEDS: HYDROmorphone INJ 0.5 MG/0.5 ML SYR IV PRN ×2 (04:22→11:56)
[2022-07-15] MEDS: HEPARIN SOD 5,000 UNIT/0.5 ML VIAL SQ SCH ×3 (06:14→23:31)
[2022-07-15] MEDS: CHECK fentaNYL PATCH PLACEMENT SCH ×3 (08:03→23:31)
[2022-07-15 08:36] LABS: BUN Creatinine Ratio 27.5 (10-20); Calcium 9.7 mg/dl (8.6-10.3); Creatinine Clr Calc Pharmacy 14.9 ml/min; Est GFR (African American) 17.7 ml/min; Est GFR (Non-African American) 15.2 ml/min
--- NOTE | 2022-07-15 09:24 | Nephrology Progress Note ---
Date of Service July 15, 2022 Assessment & Plan Admission and Anticipated Discharge Date Admission Date: July 10, 2022 Subjective Assessment & Plan (1) Hyponatremia: Plan: Hyponatremia is likely multifactorial including cancer and poor p.o. intake. Sodium today 123. Serum osmolality of 276. -Patient is n.p.o. now. It will be difficult to maintain her sodium without oral intake -Monitor sodium daily (2) RUSS (acute kidney injury): Plan: Acute kidney injury: Likely due to metastatic cancer. Patient has hyperkalemia and metabolic acidosis. She also has lot of edema. She has bilateral pleural effusions. -Monitor potassium daily. We will give Lokelma 10 g twice daily if potassium is above 5.5. -Palliative medicine have been consulted. Difficult Combination of NPO, ARF, Low na+ edema and Pl effusion and ascites ( but in the setting of malignancy). Tried NS, lasix and alb--na went from 123 to 125 to 128. no NS or lasix or Albumin today. Will follow labs for today But it seems she will benefit from being hospice care at this point. Subjective Seen for hyponatremia and acute kidney injury. Creat is rising and na+ has gone up a bit. Not much urine. Patient is unable to give history. did not even open her eyes She is also n.p.o. Review of Systems Review of Systems: Unable to obtain due to altered mental status Physical Exam Physical Exam: General exam: Confused pulling on things, HEENT: Pupils are equal and reactive to light Neck: No JVD, neck is supple trachea is midline Respiratory system: Clear breath sounds bilaterally. Right breast peau d'orange Gastrointestinal: Abdomen is soft, non distended, non tender, bowel sounds are present CVS: Regular rate and rhythm. No murmurs, rubs or gallops Musculoskeletal: No joint or muscle tenderness Extremities: Non tender, 2+ edema, peripheral pulses are present Neuro: Disoriented, no tremors, no focal neurological deficits Skin: No rashes Results & Data Vital Signs (Past 12 Hours) Vital Signs Temp Pulse Pulse Resp BP Pulse Ox O2 Del Method 07/15/22 08:00 82 07/15/22 04:11 35.7 C L 87 18 101/65 92 Room Air 07/15/22 00:04 100 H 07/14/22 22:07 35.7 C L 104 H 16 101/58 L 94 Room Air
--- NOTE | 2022-07-15 17:57 | Hospitalist Progress Note ---
Date of Service July 15, 2022 Assessment & Plan (1) Cancer associated pain: Plan: chronic L1 compression fracture and sacral insufficiency fractures present on Lumbar CT. Has been getting fentanyl patch Dilaudid 0.25 mg every 6 4 hourly as needed for additional pain control She has been screaming with pain and may require more pain medications Pain is reasonably controlled with current pain medications Has been on fentanyl patch of 25 mcg-pain is well controlled Very occasionally she will require intravenous Dilaudid of 0.25 mg Clinically much worse today Discussed with the (2) Breast cancer metastasized to multiple sites: Plan: severe pain and malnutrition present 2/2 progressed metastatic breast cancer. There is no pathology yet to determine diagnosis and diagnosis presumptive based on clinical exam and imaging. Will plan to consult radiation oncology to help with cancer related pain in her back, but this won't happen until wednesday. Intermittent confusion reported today by nurse, so would consider brain MRI with contrast, however, she has RUSS and cannot tolerate lying flat. Add fentanyl patch 25mcg TD now. Give dilaudid 0.5mg IV now. Cont with oxycodone but change to liquid for easier intake when needed. Consult rad onc Dilaudid dose has been changed to 0.25 mg every 4 hourly Discussed with in presence of the pulmonary medicine Discussed with the and the patient was put in for DNR as per her wish and 's decision Discussed with the for possible family meeting with the palliative care doctor will await family meeting tomorrow the (3) Hyponatremia: Plan: Multifactorial. Plan per nephrology includes fluid restriction. Cont aggressive pain and nausea control. Encourage PO intake once she is more comfortable. Appreciate speech therapy evaluation and recommendation Remains very weak and lethargic to have any food Appreciate nephrology's input and recommendation We will monitor PRP-sodium is 125 today but creatinine has gone up to 2.76 Sodium is little bit better but creatinine has been getting worse (4) RUSS (acute kidney injury): Plan: Plan per nephrology, bmp in am/. 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 Will cont to monitor and consider this is breathing worsens. No thoracentesis as of yet Discussed with the instructor extension work-continue acute distress or shortness of breath (7) COVID-19: Plan: Isolation, no specific treatments needed. Does not require any additional treatment Has been saturating normally on 2 L of nasal cannula (8) Malnutrition: Plan: [place] supplements TID per nutrition who saw her today (9) UTI (urinary tract infection): Plan: Urine culture has been Has been negative (10) Pneumonia: Plan: Cont cefepime for pna and UTI. No more antibiotic apixaban-being able to take orally. Will give subcu heparin Full Code Dispo-uncertain at this time. Palliative consulted for hospice consideration. reports that diagnosis really was just discussed this week for the first time although she has been having issues for months. Condition remains stable but critical Admission and Anticipated Discharge Date Admission Date: July 10, 2022 Subjective 07/12/2022 The patient was seen and examined in medical telemetry unit She has been in pain which is not controlled with fentanyl patch She is minimally responsive but has been screaming with pain at the back No fever and or chills and no shortness of breath 07/13/2022 The patient was seen and examined in medical telemetry unit She remains extremely weak and lethargic but responding to vocal commands Denies any significant pain today and moving all extremities minimally Not in any shortness of breath at rest 07/14/2022 The patient was seen and examined in medical telemetry unit in presence of the She is less responsive today but not in any acute distress Not been eating or drinking 07/15/2022 The patient was seen and examined in medical telemetry unit She is less responsive today Opening her eyes only without any other responses Review of Systems Review of Systems: Unobtainable due to cognitive status Physical Exam Physical Exam: Lying in bed obtunded Constitutional: + ill appearing and + thin Eyes: PERRL, conjunctivae normal, anicteric sclerae ENMT: external ear and nose normal, oropharynx normal Neck: trachea midline, no thyromegaly Respiratory: no respiratory distress Auscultation: + diminished lung sounds (Bilaterally more on the left than the right) Cardiovascular: Rate/Rhythm: regular rate and regular rhythm; not tachycardic Heart Sounds: normal S1, normal S2 and + murmur Extremities: + edema (Trace edema bilaterally) Gastrointestinal (Abdomen): Inspection/Auscultation: normal bowel sounds; abdomen not distended Neurologic: awake (On stimulation opens eyes) Lymphatic: no cervical or axillary lymphadenopathy Results & Data Results & Data Vital Signs (Past 12 Hours) Vital Signs Temp Pulse Pulse Resp BP Pulse Ox O2 Del Method 07/15/22 15:00 101 H 07/15/22 15:29 36.0 C L 99 H 18 94/65 L 96 Nasal Cannula 07/15/22 08:06 35.6 C L 72 18 99/60 L 93 Nasal Cannula 07/15/22 11:58 35.8 C L 82 22 95/65 L 92 Nasal Cannula 07/15/22 10:02 Room Air 07/15/22 08:00 82 O2 Flow Rate 07/15/22 15:00 07/15/22 15:29 2 07/15/22 08:06 2 07/15/22 11:58 2 07/15/22 10:02 07/15/22 08:00 Laboratory Results BMP 07/15/22 07:24 Sodium 128 L Potassium 5.0 Chloride 98 Carbon Dioxide 16 L BUN 80 H Creatinine 2.91 H Glucose 80 Calcium 9.7 Medications Administered Current Inpatient Medications Acetaminophen (Acetaminophen 325 Mg Tab) 650 mg PO Q6H PRN PRN Reason: Mild Pain (Scale 1, 2, 3) Stop: 08/09/22 15:44 Apixaban (Apixaban 5 Mg Tablet) 5 mg PO BID [facility] Stop: 08/09/22 20:59 Last Admin: 07/11/22 22:32 Dose: Not Given Fentanyl (Fentanyl 25 Mcg/Hr Tdsy) 25 mcg TD Q3D [facility] Stop: 07/25/22 18:59 Last Admin: 07/14/22 18:19 Dose: 25 mcg Heparin Sodium (Porcine) (Heparin Sod 5,000 Unit/0.5 Ml Vial) 5,000 units SQ Q8 [facility] Stop: 08/11/22 05:59 Last Admin: 07/15/22 13:41 Dose: 5,000 units Hydromorphone HCl (Hydromorphone Inj 0.5 Mg/0.5 Ml Syr) 0.25 mg IV Q1H PRN PRN Reason: pain or dyspnea Stop: 07/26/22 14:34 Miscellaneous (Check Fentanyl Patch Placement) 1 each N/A QS [facility] Stop: 08/11/22 00:00 Last Admin: 07/15/22 15:30 Dose: 1 each Miscellaneous (Fentanyl Patch Remove & Waste) 1 each N/A Q3D [facility] Stop: 08/13/22 18:59 Last Admin: 07/14/22 18:14 Dose: 1 each Oxycodone HCl (Oxycodone Hcl Soln 5 Mg/5 Ml Udc) 5 mg PO Q6H PRN PRN Reason: severe pain 6+ Stop: 07/25/22 18:20 Last Admin: 07/12/22 11:52 Dose: 5 mg (8) Malnutrition Malnutrition type: protein-calorie malnutrition Protein-calorie malnutrition severity: severe Qualified Code(s): E43 - Unspecified severe protein-calorie ma lnutrition (9) UTI (urinary tract infection) Hematuria presence: without hematuria Urinary tract infection type: acute cystitis Qualified Code(s): N30.00 - Acute cystitis without hematuria
[2022-07-16] MEDS: HEPARIN SOD 5,000 UNIT/0.5 ML VIAL SQ SCH ×2 (06:19→13:45)
[2022-07-16 08:39] LABS: Basophils # (auto) 0.02 K/uL (0-0.2); Basophils % (auto) 0.2 %; Eosinophils # (auto) 0.01 K/uL (0-0.50); Eosinophils % (auto) 0.1 %; Hematocrit (blood only) 26.9 % (37.0-47.0); Hemoglobin 9.3 g/dl (12.0-16.0); Immature Granulocytes # (auto) 0.08 K/uL (0.01-0.20); Immature Granulocytes % (auto) 0.7 %; Lymphocytes % (auto) 4.7 %; Mean Corpuscular Hemoglobin 29.9 pg (25.0-34.0); Mean Corpuscular Hgb Conc 34.6 g/dL (32.0-36.0); Mean Corpuscular Volume 86.5 fL (80.0-100.0); Mean Platelet Volume 11.3 fL (9.4-12.4); Monocytes # (auto) 0.62 K/uL (0.11-0.59); Monocytes % (auto) 5.8 %; Neutrophils # (auto) 9.47 K/uL (1.40-6.50); Neutrophils % (auto) 88.5 %; Platelet Count 173 K/uL (130-400); RDW Coefficient of Variation 15.7 % (11.5-14.5); RDW Standard Deviation 49.1 fL (36.4-46.3); Red Blood Count 3.11 M/uL (4.20-5.40)
[2022-07-16] MEDS: CHECK fentaNYL PATCH PLACEMENT SCH ×3 (08:41→22:28)
[2022-07-16 09:02] LABS: BUN Creatinine Ratio 26.6 (10-20); Calcium 9.6 mg/dl (8.6-10.3); Creatinine Clr Calc Pharmacy 13.1 ml/min; Est GFR (African American) 15.1 ml/min; Potassium 5.1 mmol/L (3.5-5.1)
--- NOTE | 2022-07-16 10:11 | Nephrology Progress Note ---
Date of Service July 16, 2022 Assessment & Plan Admission and Anticipated Discharge Date Admission Date: July 10, 2022 Subjective Assessment & Plan (1) Hyponatremia: Plan: Hyponatremia is likely multifactorial including cancer and poor p.o. intake. Sodium today 123. Serum osmolality of 276. -Patient is n.p.o. now. It will be difficult to maintain her sodium without oral intake -Monitor sodium daily (2) RUSS (acute kidney injury): Plan: Acute kidney injury: Likely due to metastatic cancer. Patient has hyperkalemia and metabolic acidosis. She also has lot of edema. She has bilateral pleural effusions. -Monitor potassium daily. -Palliative medicine have been consulted. Difficult Combination of NPO, ARF, Low na+ edema and Pl effusion and ascites ( but in the setting of malignancy). Tried NS, lasix and alb--na went from 123 to 125 to 128. today also 128 no NS or lasix or Albumin today. Creat still rising from ATN but she is totally NPO so will give some gentle hydration of NS at 50 ml/hr and also 25% albumin q12. No dialysis needed today But it seems she will benefit from being hospice care at this point. Subjective Seen for hyponatremia and acute kidney injury. Creat is rising and na+ has gone up a bit. Not much urine. Patient is unable to give history. did not even open her eyes She is also n.p.o. Review of Systems Review of Systems: Unable to obtain due to altered mental status Physical Exam Physical Exam: General exam: Confused pulling on things, HEENT: Pupils are equal and reactive to light Neck: No JVD, neck is supple trachea is midline Respiratory system: Clear breath sounds bilaterally. Right breast peau d'orange Gastrointestinal: Abdomen is soft, non distended, non tender, bowel sounds are present CVS: Regular rate and rhythm. No murmurs, rubs or gallops Musculoskeletal: No joint or muscle tenderness Extremities: Non tender, 2+ edema, peripheral pulses are present Neuro: Disoriented, no tremors, no focal neurological deficits Skin: No rashes Results & Data Vital Signs (Past 12 Hours) Vital Signs Temp Pulse Resp BP Pulse Ox O2 Del Method O2 Flow Rate 07/16/22 08:50 36.2 C L 102 H 18 81/51 L 96 Nasal Cannula 2 07/16/22 04:00 36.3 C L 101 H 16 97/61 L 96 Nasal Cannula 2 07/15/22 23:01 36.4 C L 99 H 16 97/64 L 94 Nasal Cannula 2
[2022-07-16] MEDS ORDERED: SODIUM CHLORIDE 0.9% 1000ML 1,000 ML IV SCH (10:15)
[2022-07-16] MEDS ORDERED: ALBUMIN 25% 100 mL 25 GM/100 ML VIAL IV SCH (10:30)
[2022-07-16] MEDS ORDERED: ONDANSETRON INJ 2 MG/ML 2 ML VIAL IV PRN (12:01)
[2022-07-16] MEDS ORDERED: MoRPHine SULFATE 10 MG/0.5 ML UDP PO PRN (12:01)
[2022-07-16] MEDS ORDERED: LORazepam 2 MG/1 ML VIAL IV PRN (12:01)
[2022-07-16] MEDS ORDERED: ONDANSETRON 4 MG OD TAB SL PRN (12:01)
[2022-07-16] MEDS ORDERED: LORazepam 0.5 MG TAB PO PRN (12:01)
[2022-07-16] MEDS ORDERED: oxyCODONE HCL SOLN 5 MG/5 ML UDC PO PRN (13:11)
--- NOTE | 2022-07-16 16:03 | Hospitalist Progress Note ---
Date of Service July 16, 2022 Assessment & Plan (1) Cancer associated pain: Plan: chronic L1 compression fracture and sacral insufficiency fractures present on Lumbar CT. Has been getting fentanyl patch Dilaudid 0.25 mg every 6 4 hourly as needed for additional pain control She has been screaming with pain and may require more pain medications Pain is reasonably controlled with current pain medications Has been on fentanyl patch of 25 mcg-pain is well controlled Very occasionally she will require intravenous Dilaudid of 0.25 mg Clinically much worse today The patient was seen and examined in presence of the in the room and detailed discussion about the critical condition of the patient informed. Discussed about the continuation of the current medications is not going to make any change of her outcome After discussion with the she was put for comfort care only Given pain medications and anxiety medicines as needed to keep her comfortable She remains critically ill and will try to avoid any transfer to any other room at this time Discussed with the palliative service (2) Breast cancer metastasized to multiple sites: Plan: severe pain and malnutrition present 2/2 progressed metastatic breast cancer. There is no pathology yet to determine diagnosis and diagnosis presumptive based on clinical exam and imaging. Will plan to consult radiation oncology to help with cancer related pain in her back, but this won't happen until wednesday. Intermittent confusion reported today by nurse, so would consider brain MRI with contrast, however, she has RUSS and cannot tolerate lying flat. Add fentanyl patch 25mcg TD now. Give dilaudid 0.5mg IV now. Cont with oxycodone but change to liquid for easier intake when needed. Consult rad onc Dilaudid dose has been changed to 0.25 mg every 4 hourly Discussed with in presence of the pulmonary medicine Discussed with the and the patient was put in for DNR as per her wish and 's decision Discussed with the for possible family meeting with the palliative care doctor will await family meeting tomorrow the As above (3) Hyponatremia: Plan: Multifactorial. Plan per nephrology includes fluid restriction. Cont aggressive pain and nausea control. Encourage PO intake once she is more comfortable. Appreciate speech therapy evaluation and recommendation Remains very weak and lethargic to have any food Appreciate nephrology's input and recommendation We will monitor PRP-sodium is 125 today but creatinine has gone up to 2.76 Sodium is little bit better but creatinine has been getting worse (4) RUSS (acute kidney injury): Plan: Plan per nephrology, bmp in am/. 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 Will cont to monitor and consider this is breathing worsens. 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 Does not require any additional treatment Has been saturating normally on 2 L of nasal cannula (8) Malnutrition: Plan: [place] supplements TID per nutrition who saw her today (9) UTI (urinary tract infection): Plan: Urine culture has been Has been negative (10) Pneumonia: Plan: Cont cefepime for pna and UTI. No more antibiotic apixaban-being able to take orally. Will give subcu heparin Full Code Dispo-uncertain at this time. Palliative consulted for hospice consideration. reports that diagnosis really was just discussed this week for the first time although she has been having issues for months. Condition remains stable but critical Admission and Anticipated Discharge Date Admission Date: July 10, 2022 Subjective 07/12/2022 The patient was seen and examined in medical telemetry unit She has been in pain which is not controlled with fentanyl patch She is minimally responsive but has been screaming with pain at the back No fever and or chills and no shortness of breath 07/13/2022 The patient was seen and examined in medical telemetry unit She remains extremely weak and lethargic but responding to vocal commands Denies any significant pain today and moving all extremities minimally Not in any shortness of breath at rest 07/14/2022 The patient was seen and examined in medical telemetry unit in presence of the She is less responsive today but not in any acute distress Not been eating or drinking 07/15/2022 The patient was seen and examined in medical telemetry unit She is less responsive today Opening her eyes only without any other responses 07/16/2022 The patient was seen and examined in medical telemetry unit She has been worsening and remains almost unresponsive Not opening her eyes and has some movement of the upper extremities occasionally Review of Systems Review of Systems: Unobtainable due to cognitive status Physical Exam Physical Exam: Lying in bed obtunded Constitutional: + ill appearing and + thin Eyes: PERRL, conjunctivae normal, anicteric sclerae ENMT: external ear and nose normal, oropharynx normal Neck: trachea midline, no thyromegaly Respiratory: no respiratory distress Auscultation: + diminished lung sounds (Bilaterally more on the left than the right) Cardiovascular: Rate/Rhythm: regular rate and regular rhythm; not tachycardic Heart Sounds: normal S1, normal S2 and + murmur Extremities: + edema (Trace edema bilaterally) Gastrointestinal (Abdomen): Inspection/Auscultation: normal bowel sounds; abdomen not distended Neurologic: Remains unconscious with occasional movements of the upper extremities Lymphatic: no cervical or axillary lymphadenopathy Results & Data Results & Data Vital Signs (Past 12 Hours) Vital Signs Temp Pulse Pulse Resp BP Pulse Ox O2 Del Method 07/16/22 14:06 36.3 C L 101 H 12 78/51 L 97 Nasal Cannula 07/16/22 11:14 36.2 C L 86 18 76/51 L 97 Nasal Cannula 07/16/22 07:30 104 H 07/16/22 08:40 Nasal Cannula 07/16/22 08:50 36.2 C L 102 H 18 81/51 L 96 Nasal Cannula 07/16/22 04:00 36.3 C L 101 H 16 97/61 L 96 Nasal Cannula O2 Flow Rate 07/16/22 14:06 2 07/16/22 11:14 2 07/16/22 07:30 07/16/22 08:40 2 07/16/22 08:50 2 07/16/22 04:00 2 Laboratory Results Short CBC 07/16/22 Range/Units 07:29 WBC 10.70 (4.8-10.8) K/ul Hgb 9.3 L (12.0-16.0) g/dl Hct 26.9 L (37.0-47.0) % Plt Count 173 (130-400) K/uL BMP 07/16/22 07:29 Sodium 128 L Potassium 5.1 Chloride 100 Carbon Dioxide 16 L BUN 88 H Creatinine 3.31 H D Glucose 69 L Calcium 9.6 Medications Administered Current Inpatient Medications Acetaminophen (Acetaminophen 325 Mg Tab) 650 mg PO Q6H PRN PRN Reason: Mild Pain (Scale 1, 2, 3) Stop: 08/09/22 15:44 Apixaban (Apixaban 5 Mg Tablet) 5 mg PO BID [facility] Stop: 08/09/22 20:59 Last Admin: 07/11/22 22:32 Dose: Not Given Fentanyl (Fentanyl 25 Mcg/Hr Tdsy) 25 mcg TD Q3D [facility] Stop: 07/25/22 18:59 Last Admin: 07/14/22 18:19 Dose: 25 mcg Hydromorphone HCl (Hydromorphone Inj 0.5 Mg/0.5 Ml Syr) 0.25 mg IV Q1H PRN PRN Reason: pain or dyspnea Stop: 07/26/22 14:34 Lorazepam (Lorazepam 0.5 Mg Tab) 0.5 mg PO Q4H PRN PRN Reason: Anxiety/Agitation Stop: 08/15/22 12:00 Lorazepam (Lorazepam 2 Mg/1 Ml Vial) 0.5 mg IV Q4H PRN PRN Reason: Anxiety/Agitation Stop: 08/15/22 12:00 Miscellaneous (Check Fentanyl Patch Placement) 1 each N/A QS [facility] Stop: 08/11/22 00:00 Last Admin: 07/16/22 15:07 Dose: 1 each Miscellaneous (Fentanyl Patch Remove & Waste) 1 each N/A Q3D [facility] Stop: 08/13/22 18:59 Last Admin: 07/14/22 18:14 Dose: 1 each Ondansetron HCl (Ondansetron 4 Mg Od Tab) 4 mg SL Q4H PRN PRN Reason: Nausea &/or Vomiting Stop: 08/15/22 12:00 Ondansetron HCl (Ondansetron Inj 2 Mg/Ml 2 Ml Vial) 4 mg IV Q4H PRN PRN Reason: Nausea &/or Vomiting Stop: 08/15/22 12:00 Oxycodone HCl (Oxycodone Hcl Soln 5 Mg/5 Ml Udc) 5 mg PO Q4H PRN PRN Reason: pain or dyspnea Stop: 07/25/22 18:20 (8) Malnutrition Malnutrition type: protein-calorie malnutrition Protein-calorie malnutrition severity: severe Qualified Code(s): E43 - Unspecified severe protein-calorie malnutrition (9) UTI (urinary tract infection) Hematuria presence: without hematuria Urinary tract infection type: acute cystitis Qualified Code(s): N30.00 - Acute cystitis without hematuria
[2022-07-16] MEDS: HYDROmorphone INJ 0.5 MG/0.5 ML SYR IV PRN (22:27)
[2022-07-17] MEDS: CHECK fentaNYL PATCH PLACEMENT SCH ×2 (07:54→15:14)
[2022-07-17] MEDS: HYDROmorphone INJ 0.5 MG/0.5 ML SYR IV PRN (12:58)
--- NOTE | 2022-07-17 15:45 | Hospitalist Progress Note ---
Date of Service July 17, 2022 Assessment & Plan (1) Cancer associated pain: Plan: chronic L1 compression fracture and sacral insufficiency fractures present on Lumbar CT. Has been getting fentanyl patch Dilaudid 0.25 mg every 6 4 hourly as needed for additional pain control She has been screaming with pain and may require more pain medications Pain is reasonably controlled with current pain medications Has been on fentanyl patch of 25 mcg-pain is well controlled Very occasionally she will require intravenous Dilaudid of 0.25 mg Clinically much worse today The patient was seen and examined in presence of the in the room and detailed discussion about the critical condition of the patient informed. Discussed about the continuation of the current medications is not going to make any change of her outcome After discussion with the she was put for comfort care only Given pain medications and anxiety medicines as needed to keep her comfortable She remains critically ill and will try to avoid any transfer to any other room at this time Discussed with the palliative service Remains comfortable on comfort care (2) Breast cancer metastasized to multiple sites: Plan: severe pain and malnutrition present 2/2 progressed metastatic breast cancer. There is no pathology yet to determine diagnosis and diagnosis presumptive based on clinical exam and imaging. Will plan to consult radiation oncology to help with cancer related pain in her back, but this won't happen until wednesday. Intermittent confusion reported today by nurse, so would consider brain MRI with contrast, however, she has RUSS and cannot tolerate lying flat. Add fentanyl patch 25mcg TD now. Give dilaudid 0.5mg IV now. Cont with oxycodone but change to liquid for easier intake when needed. Consult rad onc Dilaudid dose has been changed to 0.25 mg every 4 hourly Discussed with in presence of the pulmonary medicine Discussed with the and the patient was put in for DNR as per her wish and 's decision Discussed with the for possible family meeting with the palliative care doctor will await family meeting tomorrow the As above (3) Hyponatremia: Plan: Multifactorial. Plan per nephrology includes fluid restriction. Cont aggressive pain and nausea control. Encourage PO intake once she is more comfortable. Appreciate speech therapy evaluation and recommendation Remains very weak and lethargic to have any food Appreciate nephrology's input and recommendation We will monitor PRP-sodium is 125 today but creatinine has gone up to 2.76 Sodium is little bit better but creatinine has been getting worse (4) RUSS (acute kidney injury): Plan: Plan per nephrology, bmp in am/. 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 Will cont to monitor and consider this is breathing worsens. No thoracentesis as of yet Discussed with the jewelry repairer-continue acute distress or shortness of breath (7) COVID-19: Plan: Isolation, no specific treatments needed. Does not require any additional treatment Has been saturating normally on 2 L of nasal cannula (8) Malnutrition: Plan: [place] supplements TID per nutrition who saw her today (9) UTI (urinary tract infection): Plan: Urine culture has been Has been negative (10) Pneumonia: Plan: Cont cefepime for pna and UTI. No more antibiotic apixaban-being able to take orally. Will give subcu heparin Full Code Dispo-uncertain at this time. Palliative consulted for hospice consideration. reports that diagnosis really was just discussed this week for the first time although she has been having issues for months. Condition remains stable but critical Admission and Anticipated Discharge Date Admission Date: July 10, 2022 Subjective 07/12/2022 The patient was seen and examined in medical telemetry unit She has been in pain which is not controlled with fentanyl patch She is minimally responsive but has been screaming with pain at the back No fever and or chills and no shortness of breath 07/13/2022 The patient was seen and examined in medical telemetry unit She remains extremely weak and lethargic but responding to vocal commands Denies any significant pain today and moving all extremities minimally Not in any shortness of breath at rest 07/14/2022 The patient was seen and examined in medical telemetry unit in presence of the She is less responsive today but not in any acute distress Not been eating or drinking 07/15/2022 The patient was seen and examined in medical telemetry unit She is less responsive today Opening her eyes only without any other responses 07/16/2022 The patient was seen and examined in medical telemetry unit She has been worsening and remains almost unresponsive Not opening her eyes and has some movement of the upper extremities occasionally 07/17/2022 The patient was seen and examined in medical floor and in the COVID room She remains critical and unresponsive Physical Exam Physical Exam: Lying in bed obtunded Constitutional: + ill appearing and + thin Eyes: PERRL, conjunctivae normal, anicteric sclerae ENMT: external ear and nose normal, oropharynx normal Neck: trachea midline, no thyromegaly Respiratory: no respiratory distress Auscultation: + diminished lung sounds (Bilaterally more on the left than the right) Cardiovascular: Rate/Rhythm: regular rate and regular rhythm; not tachycardic Heart Sounds: normal S1, normal S2 and + murmur Extremities: + edema (Trace edema bilaterally) Gastrointestinal (Abdomen): Inspection/Auscultation: normal bowel sounds; abdomen not distended Musculoskeletal: Occasional movement of the upper extremity and head. Not responding to commands Lymphatic: no cervical or axillary lymphadenopathy Results & Data Results & Data Vital Signs (Past 12 Hours) Vital Signs Temp Pulse Resp BP Pulse Ox O2 Del Method 07/17/22 08:01 Room Air 07/17/22 07:59 36.3 C L 98 H 10 L 64/48 L 93 Room Air 07/17/22 07:54 10 L (8) Malnutrition Malnutrition type: protein-calorie malnutrition Protein-calorie malnutrition severity: severe Qualified Code(s): E43 - Unspecified severe protein-calorie malnutrition (9) UTI (urinary tract infection) Hematuria presence: without hematuria Urinary tract infection type: acute cystitis Qualified Code(s): N30.00 - Acute cystitis without hematuria
[2022-07-17] MEDS: fentaNYL 25 MCG/HR TDSY TD SCH (18:07)
[2022-07-18] MEDS: CHECK fentaNYL PATCH PLACEMENT SCH ×3 (01:11→15:32)
[2022-07-18] MEDS: HYDROmorphone INJ 0.5 MG/0.5 ML SYR IV PRN (06:41)
--- NOTE | 2022-07-18 14:47 | Hospitalist Progress Note ---
Date of Service July 18, 2022 Assessment & Plan (1) Cancer associated pain: Plan: chronic L1 compression fracture and sacral insufficiency fractures present on Lumbar CT. Has been getting fentanyl patch Dilaudid 0.25 mg every 6 4 hourly as needed for additional pain control She has been screaming with pain and may require more pain medications Pain is reasonably controlled with current pain medications Has been on fentanyl patch of 25 mcg-pain is well controlled Very occasionally she will require intravenous Dilaudid of 0.25 mg Clinically much worse today The patient was seen and examined in presence of the in the room and detailed discussion about the critical condition of the patient informed. Discussed about the continuation of the current medications is not going to make any change of her outcome After discussion with the she was put for comfort care only Given pain medications and anxiety medicines as needed to keep her comfortable She remains critically ill and will try to avoid any transfer to any other room at this time Discussed with the palliative service Remains comfortable on comfort care No apparent distress at rest with critical condition-Will continue with the comfort care (2) Breast cancer metastasized to multiple sites: Plan: severe pain and malnutrition present 2/2 progressed metastatic breast cancer. There is no pathology yet to determine diagnosis and diagnosis presumptive based on clinical exam and imaging. Will plan to consult radiation oncology to help with cancer related pain in her back, but this won't happen until wednesday. Intermittent confusion reported today by nurse, so would consider brain MRI with contrast, however, she has RUSS and cannot tolerate lying flat. Add fentanyl patch 25mcg TD now. Give dilaudid 0.5mg IV now. Cont with oxycodone but change to liquid for easier intake when needed. Consult rad onc Dilaudid dose has been changed to 0.25 mg every 4 hourly Discussed with in presence of the pulmonary medicine Discussed with the and the patient was put in for DNR as per her wish and 's decision Discussed with the for possible family meeting with the palliative care doctor will await family meeting tomorrow the As above (3) Hyponatremia: Plan: Multifactorial. Plan per nephrology includes fluid restriction. Cont aggressive pain and nausea control. Encourage PO intake once she is more comfortable. Appreciate speech therapy evaluation and recommendation Remains very weak and lethargic to have any food Appreciate nephrology's input and recommendation We will monitor PRP-sodium is 125 today but creatinine has gone up to 2.76 Sodium is little bit better but creatinine has been getting worse (4) RUSS (acute kidney injury): Plan: Plan per nephrology, bmp in am/. 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 Will cont to monitor and consider this is breathing worsens. No thoracentesis as of yet Discussed with the electronic scale subassembler-continue acute distress or shortness of breath (7) COVID-19: Plan: Isolation, no specific treatments needed. Does not require any additional treatment Has been saturating normally on 2 L of nasal cannula (8) Malnutrition: Plan: [place] supplements TID per nutrition who saw her today (9) UTI (urinary tract infection): Plan: Urine culture has been Has been negative (10) Pneumonia: Plan: Cont cefepime for pna and UTI. No more antibiotic apixaban-being able to take orally. Will give subcu heparin Full Code Dispo-uncertain at this time. Palliative consulted for hospice consideration. reports that diagnosis really was just discussed this week for the first time although she has been having issues for months. Condition remains stable but critical Admission and Anticipated Discharge Date Admission Date: July 10, 2022 Subjective 07/12/2022 The patient was seen and examined in medical telemetry unit She has been in pain which is not controlled with fentanyl patch She is minimally responsive but has been screaming with pain at the back No fever and or chills and no shortness of breath 07/13/2022 The patient was seen and examined in medical telemetry unit She remains extremely weak and lethargic but responding to vocal commands Denies any significant pain today and moving all extremities minimally Not in any shortness of breath at rest 07/14/2022 The patient was seen and examined in medical telemetry unit in presence of the She is less responsive today but not in any acute distress Not been eating or drinking 07/15/2022 The patient was seen and examined in medical telemetry unit She is less responsive today Opening her eyes only without any other responses 07/16/2022 The patient was seen and examined in medical telemetry unit She has been worsening and remains almost unresponsive Not opening her eyes and has some movement of the upper extremities occasionally 07/17/2022 The patient was seen and examined in medical floor and in the COVID room She remains critical and unresponsive 07/18/2022 The patient was seen and examined in medical floor in the COVID room She remains critical and is nonresponse Review of Systems Review of Systems: Unobtainable due to reduced consciousness Physical Exam Physical Exam: Lying in bed obtunded Constitutional: + ill appearing and + thin Eyes: PERRL, conjunctivae normal, anicteric sclerae ENMT: external ear and nose normal, oropharynx normal Neck: trachea midline, no thyromegaly Respiratory: no respiratory distress Auscultation: + diminished lung sounds (Bilaterally more on the left than the right) Cardiovascular: Rate/Rhythm: regular rate and regular rhythm; not tachycardic Heart Sounds: normal S1, normal S2 and + murmur Extremities: + edema (Trace edema bilaterally) Gastrointestinal (Abdomen): Inspection/Auscultation: normal bowel sounds; abdomen not distended Neurologic: Unresponsive. Gurgling noises in the throat and chest with occasional movement of the upper extremities Lymphatic: no cervical or axillary lymphadenopathy Results & Data Results & Data Vital Signs (Past 12 Hours) Vital Signs Temp Pulse Resp BP Pulse Ox O2 Del Method 07/18/22 08:44 Room Air 07/18/22 08:33 36.0 C L 90 8 L 47/34 L 91 Room Air 07/18/22 06:18 36.3 C L 92 H 14 51/34 L 94 Room Air (8) Malnutrition Malnutrition type: protein-calorie malnutrition Protein-calorie malnutrition severity: severe Qualified Code(s): E43 - Unspecified severe protein-calorie malnutrition (9) UTI (urinary tract infection) Hematuria presence: without hematuria Urinary tract infection type: acute cystitis Qualified Code(s): N30.00 - Acute cystitis without hematuria
--- NOTE | 2022-07-19 08:03 | Death Pronouncement Note ---
Date of Service July 18, 2022 Pronouncement Note Admission Date July 10, 2022 Date and Time of Date of : 07/18/22 Time of : 19:25 Additional Data Confirmation of : no pulse, no respirations, no heart sounds and pupils fixed and dilated Family: attempt made Attending physician: Char Gandara MD
--- NOTE | 2022-07-21 08:35 | Discharge Summary ---
Date of Service July 182022 Admission HPI Per Admitting Provider 76 years old female with past medical history of osteoporosis, compression fracture of body of thoracic vertebrae was brought to the ER for pain and failure to thrive. As per has been patient had a spine fracture about 1 year ago that was stable. But about 4 months ago she fell down a flight of stairs in [place], [place]. She was taken to an ER in [place] where she had imaging done that showed fracture of her right shoulder, right clavicles, right hip along with the pelvic. said she was stayed there for few hours then transferred to [facility] in [place], then the next day or 2 she was discharged to a nursing facility rehabilitation where she stayed there for 3 months getting therapy. said patient had episode of delirium and confusion while at [facility]. She was discharged from rehab then back to [place]. said patient has been declining in the last 4 weeks. She has been having lower extremity edema. She has been very weak or she is not able to move around. She has been having a lot of pain with movement. She has not had any appetite. She does not believe that she has COVID 19 because she does not have any respiratory symptoms. A CT chest showed abnormal skin thickening and enhancement within the right breast. A right breast is hard like a rock with skin changes, but said today was the first time she saw the right breast mass. said no one at [facility] mentioned anything about the right breast lesion. Patient is on Eliquis where has been given to her once at night but not sure the reason it was prescribed. I called the [facility] pharmacy in [place] that said the last time Eliquis was filled was March and the indication was for DVT prophylaxis. There is no cardiology note on [facility] to suggest history of A-fib and no evidence of DVT in the past. does not want anyone/provider to discuss the finding of the breast lesion, pulmonary effusion, or cancer related info with the patient before talking to him. Mr. Mohit Kohler left his cell phone number to be contacted @ [phone]. Last colonoscopy report in [facility] was back in 2009 was normal and last mammogram report was 09/03 with no evidence of malignancy. Denies any chest pain, palpitation, dizziness, and shortness of breath. Admission Exam Per Admitting Provider Physical Exam: General- No acute distress, cachetic Head- atraumatic Eyes- PERRL, EOMI, ENT- oropharynx clear Neck- supple, no JVD Lungs- clear to auscultation Heart- regular rhythm; + murmur Abdomen- normal bowel sounds, +hard nodule felt adjacent to the umbelical area Breast- Right breast hard lesion like a rock Extremities- +pitting edema B/L LE Neuro- alert, awake, oriented; PERRL, EOMI; no facial palsy; no dysarthria Skin- warm & dry Principal Diagnosis The patient -Carcinoma of the Breast with Metastasis,Covid 19 virus infection Discharge Data Allergies Allergy/AdvReac Type Severity Reaction Status Date / Time No Known Allergies Allergy Mild Verified 04/05/19 14:05 Consultations 07/10/22 11:45 ED Decision to Admit Stat 07/10/22 16:47 Consult Nephrology Routine Consult Orthopedic Surgery Routine Consult Palliative Care Routine Consult Pulmonology Routine Ordered Studies 07/10/22 07:13 CT abd pelvis IV con only Stat CT head/brain wo con Stat CT lumbar spine wo con Stat 07/10/22 07:14 CT chest diagnostic w con Stat 07/10/22 07:16 US venous doppler LE Stat Hospital Course (1) Cancer associated pain: chronic L1 compression fracture and sacral insufficiency fractures present on Lumbar CT. Has been getting fentanyl patch Dilaudid 0.25 mg every 6 4 hourly as needed for additional pain control She has been screaming with pain and may require more pain medications Pain is reasonably controlled with current pain medications Has been on fentanyl patch of 25 mcg-pain is well controlled Very occasionally she will require intravenous Dilaudid of 0.25 mg Clinically much worse today The patient was seen and examined in presence of the in the room and detailed discussion about the critical condition of the patient informed. Discussed about the continuation of the current medications is not going to make any change of her outcome After discussion with the she was put for comfort care only Given pain medications and anxiety medicines as needed to keep her comfortable She remains critically ill and will try to avoid any transfer to any other room at this time Discussed with the palliative service Remains comfortable on comfort care No apparent distress at rest with critical condition-Will continue with the comfort care (2) Breast cancer metastasized to multiple sites: severe pain and malnutrition present 2/2 progressed metastatic breast cancer. There is no pathology yet to determine diagnosis and diagnosis presumptive based on clinical exam and imaging. Will plan to consult radiation oncology to help with cancer related pain in her back, but this won't happen until wednesday. Intermittent confusion reported today by nurse, so would consider brain MRI with contrast, however, she has RUSS and cannot tolerate lying flat. Add fentanyl patch 25mcg TD now. Give dilaudid 0.5mg IV now. Cont with oxycodone but change to liquid for easier intake when needed. Consult rad onc Dilaudid dose has been changed to 0.25 mg every 4 hourly Discussed with in presence of the pulmonary medicine Discussed with the and the patient was put in for DNR as per her wish and 's decision Discussed with the for possible family meeting with the palliative care doctor will await family meeting tomorrow the As above (3) Hyponatremia: Multifactorial. Plan per nephrology includes fluid restriction. Cont aggressive pain and nausea control. Encourage PO intake once she is more comfortable. Appreciate speech therapy evaluation and recommendation Remains very weak and lethargic to have any food Appreciate nephrology's input and recommendation We will monitor PRP-sodium is 125 today but creatinine has gone up to 2.76 Sodium is little bit better but creatinine has been getting worse (4) RUSS (acute kidney injury): Plan per nephrology, bmp in am/. 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 Will cont to monitor and consider this is breathing worsens. No thoracentesis as of yet Discussed with the nuisance wildlife trapper-continue acute distress or shortness of breath (7) COVID-19: Isolation, no specific treatments needed. Does not require any additional treatment Has been saturating normally on 2 L of nasal cannula (8) Malnutrition: [place] supplements TID per nutrition who saw her today (9) UTI (urinary tract infection): Urine culture has been Has been negative (10) Pneumonia: Cont cefepime for pna and UTI. No more antibiotic apixaban-being able to take orally. Will give subcu heparin Full Code Dispo-uncertain at this time. Palliative consulted for hospice consideration. reports that diagnosis really was just discussed this week for the first time although she has been having issues for months. Condition remains stable but critical Total Time Total Time Spent Total Time Spent (In Minutes): 20 minutes Discharge Plan Discharge Items Patient Disposition: Other Date/Time: 07/18/22 19:25
== END 2022-07-18 20:00 | disposition expired | DRG 597 ==
LOC: ED 06:35 → 2W 13:00 → SUATTDRO 13:00 → 2W 16:23